=== PATIENT | female | born 1945 | race Caucasian/White ===

== ENCOUNTER 2016-05-20 05:34 | Inpatient (IN) | payer OTHER ==
[2016-04-21 10:39] VITALS: BMI 44.0
--- NOTE | 2016-04-21 11:14 | PAT Medication Instructions ---
Service Date Apr 21, 2016. Current Home Medication List Acetaminophen (Tylenol), 1,300 MG PO PRN Aspirin (Aspirin Ec), 81 MG PO QAM Atorvastatin (Lipitor), 10 MG PO QAM Bupropion (Wellbutrin-Xl), 300 MG PO QAM Calcium Carbonate-Vitamin D (Calcium + D), 1 TAB PO QAM Fish Oil (Embarrass-3), 1 CAP PO QAM Furosemide (Lasix), 20 MG PO QAM Losartan Potassium (Cozaar), 25 MG PO QAM Meloxicam (Mobic), 15 MG PO QAM Metformin Hcl (Glucophage), 500 MG PO QAM Multivitamin (Multivitamin), 1 TAB PO QAM Sertraline (Zoloft), 25 MG PO QAM [Ferrous Sulfate], 20 MG PO QAM Medication Instructions For Your Scheduled Surgery - Hold the following medications 10 days prior to surgery: Fish Oil (Embarrass-3), 1 CAP PO QAM Meloxicam (Mobic), 15 MG PO QAM (per surgeon instructions) - Hold the following medications 48 hours prior to surgery: Metformin Hcl (Glucophage), 500 MG PO QAM - Hold the following medications the morning of surgery: Ferrous Sulfate 20 MG PO QAM Multivitamin (Multivitamin), 1 TAB PO QAM Furosemide (Lasix), 20 MG PO QAM Losartan Potassium (Cozaar), 25 MG PO QAM Calcium Carbonate-Vitamin D (Calcium + D), 1 TAB PO QAM - Take the following medications the morning of surgery with a sip of water: Sertraline (Zoloft), 25 MG PO QAM Acetaminophen (Tylenol), 1,300 MG PO PRN Aspirin (Aspirin Ec), 81 MG PO QAM Atorvastatin (Lipitor), 10 MG PO QAM Bupropion (Wellbutrin-Xl), 300 MG PO QAM - Take the following medications as scheduled the night before surgery: Acetaminophen (Tylenol), 1,300 MG PO PRN If you have any questions please call us at [phone] or [phone] ( [place]) or [phone]
[2016-04-21 11:37] LABS: BASO % 0.5 %; BASO ABS # 0.04 K/uL (0-0.2); COMPLETE YES; HEMATOCRIT 37.6 % (37-47); IG% 0.3 %; LYMPH % 23.9 %; LYMPH ABS # 1.78 K/uL (1.2-3.4); MEAN CELL VOLUME 93.8 fL (80-100); MEAN CORPUSCULAR HEMOGLOBIN 30.9 pg (25-34); MEAN PLATELET VOLUME 9.7 fL (7.4-10.4); MONO % 9.2 %; NEUT % 64.1 %; PLATELET COUNT 327 K/uL (130-400); RED BLOOD COUNT 4.01 M/uL (4.2-5.4); WHITE BLOOD COUNT 7.46 K/uL (4.8-10.8)
[2016-04-21 11:59] LABS: BUN/CREATININE RATIO 16.9 (10-20); CALCIUM 9.8 mg/dl (8.5-10.1); CREATININE 1.1 mg/dl (0.60-1.20); POTASSIUM 4.2 mmol/L (3.5-5.1)
[2016-04-21 12:03] LABS: PROTHROMBIN TIME (PATIENT) 10.4 SECONDS (9.0-12.0)
--- NOTE | 2016-04-21 12:10 | DIAGNOSTIC IMAGING REPORT ---
CHEST PREADMISSION(PA/LAT) CLINICAL HISTORY: PAT preoperative evaluation COMPARISON STUDY: No previous studies for comparison. FINDINGS: The bones soft tissues and hemidiaphragms are normal. The cardiomediastinal silhouette is normal. The lungs are clear. The pulmonary vasculature is normal. IMPRESSION: Negative chest. Electronically signed by: Leland Lee M.D. 04/21/2016 12:09 PM Dictated Date/Time: 04/21/2016 12:08 PM
[2016-04-21 12:54] LABS: ESTIMATED AVERAGE GLUCOSE 117 mg/dl; HA1C FLAG Normal (Normal)
--- NOTE | 2016-05-17 10:46 | HISTORY & PHYSICAL EXAMINATION ---
DATE OF ADMISSION: 05/20/2016 CHIEF COMPLAINT: Bilateral knee pain, right side greater than left. HISTORY OF PRESENT ILLNESS: A 70-year-old female who presents for treatment of both knees. She has got a long history of bilateral knee pain and discomfort, dating over 3 years back. She has been through extensive conservative treatment including steroid shots and viscosupplementation without much relief. She has difficulty walking any significant degree. She has really tried to lose weight but just can't do it. Pain is incapacitating. She would like to have her right knee replaced. Of note, patient did have a right hip replaced by Dr. Womack in [place] several years ago. PAST MEDICAL HISTORY: 1. Well controlled diabetes x10 years with a hemoglobin A1c of 5.7. 2. Hypertension. 3. Sleep apnea. 4. Obesity with a BMI of 44. 5. Gastroesophageal reflux disease. PAST SURGICAL HISTORY: Right total hip replacement in 2012. ALLERGIES: NEOSPORIN. CURRENT MEDICINES: Include: 1. Meloxicam. 2. Metformin 500 mg once a day. 3. Lasix 20 mg 2 on Thursday and Thursday, 1 on other days. 4. Iron sulfate. 5. Zoloft 25 mg. 6. Aspirin 81 mg a day. 7. Wellbutrin 300 mg daily. 8. Calcium 600+ D. 9. Fish oil 1000 mg a day. 10. Multivitamin once a day. 11. Tylenol Arthritis. SOCIAL HISTORY: A 70-year-old female who lives at [place]. Lives by herself. She is retired. FAMILY HISTORY: Noncontributory. REVIEW OF SYSTEMS: Significant for diabetes well controlled. Denies any chest pain, no shortness of breath. No history of DVT or PE. PHYSICAL EXAMINATION: GENERAL: Reveals a pleasant elderly female who looks a little bit younger than her stated age. HEAD, EYES, EARS, NOSE, AND THROAT EXAMINATION: Benign. NECK: Supple. No lymphadenopathy. LUNGS: Clear to auscultation. HEART: Has a regular rate and rhythm. ABDOMEN: Soft, nontender, nondistended. EXTREMITY EXAMINATION: Grossly neurovascularly intact except as follows: Examination of both knees reveals the patient walks with a bit of a waddling gait. She has a fairly large soft tissue envelop on both sides. Range of motion is pretty symmetrical in her knees with 5 degree flexion contracture, about 110 degrees of flexion bilaterally. No pain with hip motion. X-RAYS: X-rays of both knees reveal advanced bilateral knee DJD. She has complete loss of medial joint space. She has subchondral sclerosis. Multiple loose bodies in the back of her knee. She has got significant patellofemoral arthritis. ASSESSMENT: A 70-year-old female with a BMI of 44 with advanced bilateral knee degenerative joint disease. The right side is a bit more severe than the left. She has failed conservative treatment. She has tried to lose weight but unsuccessful. PLAN: We talked about treatment and she would like to have her right knee replaced. We will take her to the operating room and do a right total knee replacement. The risks and benefits of this procedure were explained to the patient including but not limited to DVT, PE, , infection, neurological injury, vascular injury, bleeding problem, pain, limited range of motion, stiffness, failure to relieve her symptoms, incomplete relief of symptoms, need for further surgery in the future, fracture, leg length inequality, nerve palsy, persistent pain, etc. The patient understands and desires to proceed. Informed consent was obtained. We did tell her with her BMI she is at increased risk of infection and complications and she is fully aware of that. Will likely use a tibial stem due to her large size to decrease the likelihood of loosening and may put some vancomycin in her cement. I will see her back 2 weeks postop. As far as discharge plans, she is hoping to go to [facility] or a intermediate facility as she lives by herself and she will need some assistance. AMRIK
[~2016-05-20] VITALS: Ht 165.1 cm; Wt 120.1 kg
[2016-05-20] VITALS (9 sets, daily range): BP systolic 113–153; BP diastolic 68–90; PULSE 62–79; TEMP 36.3–36.8; O2SAT 94–100; Ht 165.1 cm; Wt 120.1 kg
[~2016-05-20 05:34] MED LIST: ACET650S10 PO; ASPI81TA28 PO; ATOR10TA82 PO; BUPRTAB51 PO; CALC600T9 PO; FERROUS SULFATE PO; FURO-85 PO; GLC/500 PO; LOSA1TAB PO; MELO7.5T5 PO; MULT-506 PO; OMEG10007 PO; SERT25TA PO
[2016-05-20] MEDS ORDERED: CEFAZOLIN 3000 MG/65 ML D5W 65 ML IV SCH (06:00)
[2016-05-20] MEDS ORDERED: GABAPENTIN 300 MG CAP PO SCH (06:00)
[2016-05-20] MEDS ORDERED: METOCLOPRAMIDE HCL 10 MG TAB PO SCH (06:00)
[2016-05-20] MEDS ORDERED: SCOPOLAMINE 1.5 MG TDSY TD SCH (06:00)
[2016-05-20] MEDS ORDERED: ACETAMINOPHEN 500 MG TAB PO SCH (06:00)
[2016-05-20] MEDS ORDERED: BUPIVACAINE LIPOSOME 266 MG, BUPIVACAINE/EPINEPHRINE INJ 50 ML, SODIUM CHLORIDE 0.9% PF... INFIL SCH ×3 (06:00)
[2016-05-20] MEDS ORDERED: LACTATED RINGER'S 1000ML 1,000 ML IV SCH (06:00)
[2016-05-20] MEDS ORDERED: LACTATED RINGER'S 1000ML IV SCH (06:00)
[2016-05-20] MEDS ORDERED: TRANEXAMIC ACID INJ 1,000 MG in SODIUM CHLORIDE 0.9% 100ML 100 ML IV SCH ×2 (06:00→15:00)
[2016-05-20] MEDS ORDERED: FAMOTIDINE 20 MG TAB PO SCH (06:00)
[2016-05-20] MEDS ORDERED: BUPIVACAINE 0.5 % 5 MG/1 ML PF 10ML VIAL ONE (06:25)
[2016-05-20] MEDS ORDERED: BUPIVACAINE 0.25% 30 ML VIAL ONE (06:25)
[2016-05-20] MEDS ORDERED: BUPIVACAINE LIPOSOME 1/3% 266 MG/20 ML VIAL INFIL ONE (06:39)
[2016-05-20] MEDS ORDERED: SODIUM CHLORIDE 0.9% PF 50 ML VIAL ONE (06:39)
[2016-05-20] MEDS ORDERED: BACITRACIN 50000 UNIT VIAL ONE (06:39)
[2016-05-20] MEDS ORDERED: BUPIVACAINE/EPINEPHRINE 0.25% 1:200,000 30 ML VIAL ONE (06:39)
--- NOTE | 2016-05-20 06:45 | History & Physical Bridge Note ---
H&P Re-Evaluation Bridge Note: I have examined the patient, reviewed the History & Physical and in the interval since the performance of the History & Physical I have noted the following changes of clinical significance: No changes noted
[2016-05-20] MEDS ORDERED: VANCOMYCIN HCL 1000MG/20ML VIAL ONE (06:52)
[2016-05-20] MEDS ORDERED: MIDAZOLAM HCL 1 MG/ML 2ML VIAL ONE (07:08)
[2016-05-20] MEDS ORDERED: FENTANYL CITRATE INJ 50 MCG/1 ML 2 ML VIAL ONE (07:08)
[2016-05-20] MEDS ORDERED: LACTATED RINGER'S 1000ML 1,000 ML IV PRN (07:41)
[2016-05-20] MEDS ORDERED: FENTANYL CITRATE INJ 50 MCG/1 ML 2 ML VIAL IV PRN (07:45)
[2016-05-20] MEDS ORDERED: ONDANSETRON INJ 2 MG/ML 2 ML VIAL IV PRN ×2 (07:45→09:15)
[2016-05-20] MEDS ORDERED: EpHEDrine SULFATE 50MG/5ML SYR ONE (08:04)
[2016-05-20] MEDS ORDERED: PROPOFOL IV EMULSION 10 MG/ML 20 ML VIAL IV ONE (08:04)
--- NOTE | 2016-05-20 09:06 | [facility] Post Operative Brief Note ---
Immediate Operative Summary Operative Date May 20, 2016. Pre-Operative Diagnosis Advanced Right Knee Degenerative Joint Disease Post-Operative Diagnosis Advanced Right Knee Degenerative Joint Disease Procedure(s) Performed Right Total Knee Arthroplasty Surgeon Dr. Freeman Body Trimmer Surgeon(s) TAHIRA Dunn Estimated Blood Loss 50 ml Findings Right Knee DJD Fluids (cc crystalloids) 1300 cc Specimens A. Right Knee Bone and Tissue Drains None Anesthesia Spinal Complication(s) None Disposition Recovery Room / PACU
[2016-05-20] MEDS ORDERED: GLUCAGON FOR INJ 1 MG VIAL SQ PRN (09:15)
[2016-05-20] MEDS ORDERED: DEXTROSE 50% 50 ML SYR IV PRN (09:15)
[2016-05-20] MEDS ORDERED: ALUMINUM/MAGNESIUM/SIMETH (MAALOX MAX) 30 ML UDC PO PRN (09:15)
[2016-05-20] MEDS ORDERED: GLUCOSE 40% GEL 15 GM TUBE PO PRN (09:15)
[2016-05-20] MEDS ORDERED: SILVER SULFADIAZINE 1% CR 50 GM JAR EXT PRN (09:15)
[2016-05-20] MEDS ORDERED: ZOLPIDEM TARTRATE 5 MG TAB PO PRN (09:15)
[2016-05-20] MEDS ORDERED: DiphenhydrAMINE HCL 50 MG/ML VIAL IV PRN (09:15)
[2016-05-20] MEDS ORDERED: MAGNESIUM HYDROXIDE SUSP 30 ML UDC PO PRN (09:15)
[2016-05-20] MEDS ORDERED: BISACODYL 10 MG SUPP PR PRN (09:15)
[2016-05-20] MEDS ORDERED: GLUCOSE 10 TABS/TUBE PO PRN (09:15)
[2016-05-20] MEDS ORDERED: MoRPHine SULFATE 2 MG/ML CARP IV PRN (09:15)
[2016-05-20] MEDS ORDERED: METOCLOPRAMIDE HCL INJ 5 MG/ML 2 ML VIAL IV PRN (09:15)
--- NOTE | 2016-05-20 09:40 | Anesthesiology Progress Note ---
Anesthesia Post Op Note Date & Time May 20, 2016 at 09:38 Vital Signs Pain Intensity: 0 Vital Signs Past 12 Hours Date Time Temp Pulse Resp B/P Pulse Ox O2 Delivery O2 Flow Rate FiO2 05/20/16 09:35 37 65 16 104/56 100 Nasal Cannula 2 05/20/16 09:25 37 65 16 116/60 100 Nasal Cannula 2 05/20/16 09:15 69 16 112/55 100 Nasal Cannula 2 05/20/16 09:08 36.9 69 16 104/56 100 Nasal Cannula 3 05/20/16 06:15 36.6 79 20 153/90 94 Room Air Notes Mental Status: alert / awake / arousable, participated in evaluation Pt Amnestic to Procedure: No (recall as expected) Nausea / Vomiting: adequately controlled Pain: adequately controlled Airway Patency, RR, SpO2: stable & adequate BP & HR: stable & adequate Hydration State: stable & adequate Neuraxial Anesthesia: was administered, sensory block is resolving Anesthetic Complications: no major complications apparent Pt doing well.
--- NOTE | 2016-05-20 10:13 | DIAGNOSTIC IMAGING REPORT ---
RIGHT KNEE 1 OR 2 VIEWS ROUTINE CLINICAL HISTORY: Postoperative evaluation. COMPARISON: Knee radiographs during her 29/07/2016. FINDINGS: Alignment of the total right knee arthroplasty is anatomic. There is no fracture or unexpected radiopaque foreign body. Skin ciara are present. IMPRESSION: Expected findings following total right knee arthroplasty. Electronically signed by: Surinder Hernandez M.D. 05/20/2016 10:10 AM Dictated Date/Time: 05/20/2016 10:10 AM
[2016-05-20] MEDS ORDERED: INSULIN HUMAN REGULAR SC SCH (11:00)
[2016-05-20] MEDS: KETOROLAC TROMETHAMINE 15 MG/ML VIAL IV. SCH ×3 (11:28→23:39)
[2016-05-20] MEDS: SODIUM CHLORIDE 0.9% 1000ML 1,000 ML IV SCH ×3 (11:29→23:37)
[2016-05-20] MEDS: INSULIN HUMAN REGULAR SC SCH ×3 (12:00→21:00)
[2016-05-20] MEDS: FERROUS GLUCONATE 324 MG TAB PO SCH ×2 (12:17→19:02)
[2016-05-20] MEDS: OXYCODONE HCL IR 5 MG TAB (IMMEDIATE RELEASE) PO PRN (12:17)
[2016-05-20] MEDS: ACETAMINOPHEN 500 MG TAB PO SCH ×2 (13:50→21:48)
--- NOTE | 2016-05-20 14:45 | OPERATIVE REPORT ---
DATE OF OPERATION: 05/20/2016 SURGEON: Demetri Freeman MD ENDOSCOPY TECH: TAHIRA Kohli PREOPERATIVE DIAGNOSIS: Right knee degenerative joint disease. POSTOPERATIVE DIAGNOSIS: Same. PROCEDURE PERFORMED: Right cemented posterior stabilized total knee arthroplasty. COMPLICATIONS: None. ESTIMATED BLOOD LOSS: 50 mL. FLUID REPLACEMENT: 1200 mL crystalloid fluid replacement. TOURNIQUET TIME: 55 minutes at 350 mmHg. ANESTHESIA: Spinal with adductor canal block. DRAINS: None. SPECIMENS: Right knee sent for pathology. OPERATIVE INDICATIONS: The patient is a 70-year-old female who has had a fairly long history of bilateral knee pain and discomfort. The patient has been through extensive conservative treatment without adequate relief. She has tried to lose weight, but unsuccessfully. The x-rays reveal advanced bilateral knee DJD. The right side was more symptomatic than the left. She elected to proceed with right total knee replacement. OPERATIVE FINDINGS: Operative findings revealed advanced right knee DJD. She had grade 4 [id number] disease in all 3 compartments, most severe in the medial side. She had osteophytes on the medial femoral condyle and medial tibial plateau. Large knee joint effusion. She had a large soft tissue envelope. She is diabetic with a BMI of 44. OPERATIVE IMPLANTS: Operative implants consisted of: 1. A Biomet Vanguard size 70 right posterior stabilized femoral component. 2. A Biomet size 71 tibial tray. 3. A 12-mm posterior stabilized polyethylene insert. 4. A 34 x 8.5 all poly patella. OPERATIVE PROCEDURE: The was patient taken to the operating room, identified and placed on the operating table in supine position. All contact areas were appropriately padded. IV antibiotics were provided by anesthesia team. A spinal anesthetic and adductor canal block had been provided in the holding area. Goss catheter was placed in sterile fashion. Right thigh tourniquet was then placed and the right lower extremity was then prepped and draped in usual sterile fashion. The right leg was elevated and exsanguinated with Esmarch and tourniquet was placed at 350 mmHg. An anterior approach to the right knee was then performed through a longitudinal incision centered over the patella. Sharp dissection was carried out through the subcutaneous tissues down to the level of the extensor mechanism. A medial parapatellar arthrotomy incision was made. Some subperiosteal dissection was carried out medially. The fat pad was resected from beneath the patellar tendon. The lateral patellofemoral ligament was released. The patella was everted and knee was flexed. The osteophytes were taken off the distal femur. The ACL and PCL were then released from the distal femur and the tibia subluxated anteriorly. The external tibial alignment jig was then placed in the anterior face of the tibia and adjusted 16 mm medially. Proximal tibial cut was made to remove about a millimeter of bone from the most deficient aspect of the medial tibial plateau. Some osteophytes were taken off medial and posteromedially. Tibia size was size 71. Attention was then drawn to the femur. The distal femur was entered with a sharp drill bit. Intramedullary canal was suctioned. A right 5-degree valgus cutting guide was placed. Distal femoral cutting block was pinned in place. Distal femoral cut was made to take an additional 3 mm of bone off the distal femur. The femur was then sized to a size 70. We did downsize this slightly. The AP cutting block was pinned parallel to the epicondylar axis, which was 3 degrees of external rotation. The anterior cut, anterior chamfer, posterior cut, and posterior chamfer cuts were made. Box cutting guide was placed and adjusted slight lateral and the box cut was made. The knee was flexed. The remnants of the medial and lateral menisci were excised. The osteophytes were taken off the posterior aspect of the femur. A trial femoral component was placed. Tibial tray was pinned in maximum external rotation and drill and stem punch were used to create defect in proximal tibia for the tibial tray. The knee was then trialed and the 12-mm insert fit most appropriately. Attention was then drawn to the patella. The patella was cleaned of all soft tissues. Patella thickness measured 22 mm and was cut down to 14. It was sized to a size 34 patella. Lug holes were drilled for a 34 patella. Lateral osteophyte was removed. Patella button was placed. Knee was taken through range of motion and the patella tracked nicely with no thumbs test. Attention was then drawn toward placement of permanent components. All trial components were removed. A bone plug was placed in the distal femur to limit blood loss. The patient did receive 1 gram of tranexamic acid. The wound was irrigated. A double batch of Palacos G cement was mixed. I did add an additional gram of vancomycin due to her large size and her diabetes. A right size 70 posterior stabilized femoral component, size 71 tibial tray, a 12-mm posterior stabilized polyethylene insert, and a 34 x 8.5 all poly patella were then cemented in place. Knee was brought out into full extension until cement hardened. A final cement check was then performed. Pericapsular tissues were injected with a total of 100 mL of a combination of 20 mL of Exparel, 30 mL of normal saline, and 50 mL of 0.25% Marcaine with epinephrine. The tourniquet was then let down for a final tourniquet time of 55 minutes. Hemostasis was assured with use of electrocautery. The wound was once again irrigated. The extensor mechanism was then closed with a combination of #1 PDS suture and #1 Vicryl suture in a [id number] fashion. Extensor mechanism was checked and found to be intact. The subcutaneous tissues were then closed with 2-0 Dexon suture in a buried interrupted fashion. Skin was closed skin ciara. Leg was then cleaned and dried and a sterile dressing of Xeroform, 4 x 4, sterile cast padding and Vijay bandage were applied. The patient then transferred to the recovery room in stable condition. The patient tolerated the procedure well with no complications. All needle and sponge counts were correct at the end of the operation. I attest to the content of the Intraoperative Record and any orders documented therein. Any exceptio ns are noted below.
[2016-05-20] MEDS: CHECK SCOPOLAMINE PATCH PLACEMENT SCH ×2 (15:45→23:37)
[2016-05-20] MEDS: CEFAZOLIN IV 2,000 MG in DEXTROSE 5% 50ML 50 ML IV SCH ×2 (15:47→23:36)
--- NOTE | 2016-05-20 18:38 | PROGRESS NOTE ---
DATE: 05/20/2016 SUBJECTIVE: A 70-year-old white female postop from a right knee replacement. She is doing pretty well. Having quite a bit knee pain and leg pain currently. Just got some medicine not too long ago. Denies any chest pain or shortness of breath. Not feeling dizzy or lightheaded. OBJECTIVE: VITAL SIGNS: Temperature 36.4. Vital signs stable. PHYSICAL EXAMINATION: GENERAL: Reveals a healthy, pleasant middle-aged female. She is sitting up in bed, looks reasonably comfortable. LUNGS: Clear to auscultation. HEART: Has a regular rate and rhythm. ABDOMEN: Soft, nontender, nondistended. EXTREMITIES: Grossly neurovascularly intact except as follows: Examination of the right lower extremity reveals the leg to be well aligned. Dressing is clean, dry and intact. She can dorsiflex and plantarflex her foot appropriately. She is neurologically intact. IMAGING DATA: X-rays of the right knee from recovery room were reviewed. It shows a cemented posterior stabilized total knee arthroplasty. Components looked to be in good position. No signs of problems. ASSESSMENT: A 70-year-old white female postop from a right knee replacement, doing well. Pain is controlled. She is neurologically intact. PLAN: 1. DVT prophylaxis including thigh-high TEDs, SCDs, and aspirin twice a day. 2. PT/OT. Weightbearing as tolerated. Right total knee protocol. 3. Pain control, doing reasonably well with current pain regimen. 4. She is ready for some IV morphine as needed. 5. Disposition: She is hoping to be discharged to [facility] for a brief rehab stay once medically stable.
[2016-05-20] MEDS: TAPENTADOL ER 50 MG TABCR PO SCH (21:46)
[2016-05-20] MEDS: ASPIRIN 325 MG ECTAB PO SCH (21:47)
[2016-05-20] MEDS: DOCUSATE SODIUM 100 MG CAP PO SCH (21:47)
[2016-05-21] VITALS (7 sets, daily range): BP systolic 102–134; BP diastolic 59–82; PULSE 68–79; TEMP 36.9–37.6; O2SAT 94–98
[2016-05-21] MEDS: KETOROLAC TROMETHAMINE 15 MG/ML VIAL IV. SCH ×4 (05:49→23:34)
[2016-05-21] MEDS: ACETAMINOPHEN 500 MG TAB PO SCH ×3 (05:50→21:50)
[2016-05-21 06:08] LABS: HEMATOCRIT 31.1 % (37-47); MEAN CELL VOLUME 93.4 fL (80-100); MEAN CORPUSCULAR HEMOGLOBIN 30.6 pg (25-34); MEAN CORPUSCULAR HGB CONC 32.8 g/dl (32-36); MEAN PLATELET VOLUME 9.1 fL (7.4-10.4); PLATELET COUNT 309 K/uL (130-400); RED BLOOD COUNT 3.33 M/uL (4.2-5.4); WHITE BLOOD COUNT 8.97 K/uL (4.8-10.8)
[2016-05-21 06:25] LABS: BUN/CREATININE RATIO 16.7 (10-20); CREATININE 0.83 mg/dl (0.60-1.20); POTASSIUM 4.2 mmol/L (3.5-5.1)
[2016-05-21] MEDS: SODIUM CHLORIDE 0.9% 1000ML 1,000 ML IV SCH (06:38)
--- NOTE | 2016-05-21 07:23 | PROGRESS NOTE ---
DATE: 05/21/2016 SUBJECTIVE: A 70-year-old female postop day 1 from right knee replacement. She is doing much better this morning. Pain is controlled. Denies any chest pain or shortness of breath. Not feeling dizzy or lightheaded. OBJECTIVE: VITAL SIGNS: Temperature 36.9. Vital signs stable. PHYSICAL EXAMINATION: GENERAL: Reveals a healthy, pleasant middle-aged female. She is sitting up in bed, looks pretty comfortable. LUNGS: Clear to auscultation. HEART: Regular rate and rhythm. ABDOMEN: Soft, nontender, nondistended. EXTREMITIES: Grossly neurovascularly intact except as follows. Examination of the right lower extremity reveals the leg to be well aligned. She can dorsiflex and plantarflex her foot appropriately. She can do a good straight leg raise. Neurologically intact. LABORATORY DATA: Hemoglobin 10.2. Hematocrit 31.4. Electrolytes are stable. ASSESSMENT: A 70-year-old female postop day 1 from right total knee replacement, doing well. Pain is under better control. She is neurologically intact. PLAN: 1. DVT prophylaxis including thigh-high TEDs, SCDs, and aspirin twice a day. 2. PT/OT. Weightbearing as tolerated. Right total knee protocol. 3. Pain control. Doing well current pain regimen. 4. Disposition: She is hoping to be discharged to [facility] for a brief rehab stay once adequately recovered.
--- NOTE | 2016-05-21 08:54 | Anesthesiology Progress Note ---
Anesthesia Post Op Note Date & Time May 21, 2016 at 08:52 Vital Signs Vital Signs Past 12 Hours Date Time Temp Pulse Resp B/P Pulse Ox O2 Delivery O2 Flow Rate FiO2 05/21/16 07:52 37.0 68 16 123/76 96 Room Air 05/21/16 03:10 36.9 78 14 116/75 96 Room Air 05/20/16 23:40 Room Air 05/20/16 23:27 36.8 70 14 121/71 98 Room Air Notes Mental Status: alert / awake / arousable, participated in evaluation Pt Amnestic to Procedure: Yes Nausea / Vomiting: adequately controlled Pain: adequately controlled Airway Patency, RR, SpO2: stable & adequate BP & HR: stable & adequate Hydration State: stable & adequate Neuraxial Anesthesia: sensory block resolved Anesthetic Complications: no major complications apparent
[2016-05-21] MEDS: CHECK SCOPOLAMINE PATCH PLACEMENT SCH ×3 (08:58→23:34)
[2016-05-21] MEDS: FERROUS GLUCONATE 324 MG TAB PO SCH ×3 (08:59→18:11)
[2016-05-21] MEDS: INSULIN HUMAN REGULAR SC SCH ×4 (08:59→21:00)
[2016-05-21] MEDS: ATORVASTATIN 10 MG TAB PO SCH (09:00)
[2016-05-21] MEDS ORDERED: MULTIVITAMIN TAB PO SCH (09:00)
[2016-05-21] MEDS: ASPIRIN 325 MG ECTAB PO SCH ×2 (09:00→21:07)
[2016-05-21] MEDS: BuPROPion XL 300 MG TABCR PO SCH (09:01)
[2016-05-21] MEDS: MULTIVITAMIN TAB PO SCH (09:01)
[2016-05-21] MEDS: PANTOprazole SOD 40 MG TAB PO SCH (09:02)
[2016-05-21] MEDS: DOCUSATE SODIUM 100 MG CAP PO SCH ×2 (09:02→21:07)
[2016-05-21] MEDS: SERTRALINE HCL 50 MG TAB PO SCH (09:02)
[2016-05-21] MEDS: LOSARTAN POTASSIUM 25 MG TAB PO SCH (09:05)
[2016-05-21] MEDS: FUROSEMIDE 20 MG TAB PO SCH (09:05)
[2016-05-21] MEDS: TAPENTADOL ER 50 MG TABCR PO SCH ×2 (09:08→21:07)
[2016-05-21] MEDS: CALCIUM 600MG + VIT D 400 IU TAB PO SCH (09:27)
[2016-05-21] MEDS: OXYCODONE HCL IR 5 MG TAB (IMMEDIATE RELEASE) PO PRN (11:25)
[2016-05-21] MEDS ORDERED: RXC5 PO (20:33)
[2016-05-21] MEDS ORDERED: ASPEC325 PO (20:33)
[2016-05-21] MEDS ORDERED: FRRG PO (20:33)
[2016-05-21] MEDS ORDERED: ACET-1138 PO (20:33)
[2016-05-21] MEDS ORDERED: NCYSR50 PO (20:33)
--- NOTE | 2016-05-21 20:37 | Discharge Instructions ---
Discharge Instructions Date of Service May 21, 2016. Admission Reason for Admission: Right Knee Degenerative Joint Disease Discharge Discharge Diagnosis / Problem: Right Knee Replacement Discharge Goals Goal(s): Decrease discomfort, Improve function, Increase independence, Improve disease control, Therapeutic intervention Activity Recommendations Activity Level: Assistance Required Therapies: Physical Therapy, Occupational Therapy Weightbearing Status: Right weightbearing . Additional Information Patient informed of condition: Yes Advance Directives: No DNR: No Level of Care: Acute Rehab Communicable Disease: No Prognosis: Improving Instructions / Follow-Up Instructions / Follow-Up ACTIVITY RECOMMENDATIONS: Physical Therapy: * You will go to physical therapy three times each week for four to six weeks after your surgery in order to regain your knee range of motion and to retrain your knee to work properly. * It is just as important to make sure you are getting your knee perfectly straight as it is to regain your knee bend. * Taking a pain pill an hour before therapy can help you have a more productive and comfortable therapy session. Home Exercise: * You were shown a series of exercises (heel props, heel slides, etc.) in the hospital. Do these exercises three to four times each day including the exercises you were shown in physical therapy. Walking: * Get up and walk several times each day. For the first four weeks, try not to stand or walk for more than one hour at a time. If you do stand or walk for more than one hour, you will not hurt anything, but your knee and leg will likely swell. * As you feel comfortable, you may change from the walker or crutches to a cane and then to independent walking. MEDICATIONS: New Medicine: * You will likely be taking one or more of these medications: 1. Nucynta - A long-acting pain medication. Take 1 tablet twice a day for the first ten days to decrease your baseline level of pain. 2. Oxycodone - A quick and shorter-acting pain medication. Take one to two tablets every four to six hours to lessen your pain. 3. Iron Sulfate - Take three times each day for the month after surgery to help you replace the blood lost during surgery. 4. Aspirin - Thins your blood to lessen the chance of forming a blood clot. * The most common side effects of pain medicine and iron are nausea and constipation. If nausea or constipation is too much of a problem or if you have any questions about your new medicines or doses, call [facility] at . We will try to help you manage these issues. VERY IMPORTANT TO READ AND REVIEW" Pain: * The immediate post-operative period after knee replacement surgery is often quite painful. * You are given a prescription for pain medicine. You should take it, as directed, when you need it, especially before physical therapy and before going to bed. Pain that interferes with sleep is very common and can last several months. * You will likely need pain medicine for the first four to six weeks. It will not stop all of the pain. The pain will lessen and as you feel better, you may change to milder pain medicine such as Tylenol. * The most common side effects of pain medicine are nausea and constipation, so don't take more than you need. SPECIAL CARE INSTRUCTIONS: TEDs/Elastic Stockings: * The white elastic stockings help limit swelling and prevent blood clots from forming in your legs. The more you wear them, the more they work. * Wear them for six weeks after knee replacement surgery and four weeks after partial knee replacement. Prevention of Infection: * Take antibiotics one hour before any dental cleaning, dental work, urological procedure, gastrointestinal procedure or any invasive surgery in order to prevent your new joint from getting infected. * You may get the antibiotics from the doctor performing the procedure or you may call our office at before and we will call in a prescription to the pharmacy of your choice. Things to Watch For: * Drainage from the incision site that occurs more than one week after your surgery. * Severely increased knee/leg pain or swelling. * Increased redness at the incision site. * Fever above 102 degrees Fahrenheit. * Unusual chest pain or shortness of breath. * Unusual pain or burning with urination. Call [facility] at with any of the above problems or if you have any questions about your medicines or recovery. FOLLOW UP VISIT: Make an appointment to see your doctor for approximately two weeks after surgery for a progress check and staple removal by calling the office at . Current Hospital Diet Patient's current hospital diet: Diabetes Type 2 Diet Discharge Diet Recommended Diet: Diabetes Type 2 Diet Procedures Procedures Performed: Right Total Knee Arthroplasty Pending Studies Studies pending at discharge: no Laboratory Results Hemoglobin A1c Test 04/21/16 11:19 Range/Units Estimated Average Glucose 117 mg/dl Hemoglobin A1c 5.7 H 4.5-5.6 % Medical Emergencies . Who to Call and When: Medical Emergencies: If at any time you feel your situation is an emergency, please call 911 immediately. . Non-Emergent Contact Non-Emergency issues call your: Surgeon . . "Provider Documentation" section prepared by Demetri Freeman. Core Measure Problem Core Measures: None
[2016-05-22] MEDS: KETOROLAC TROMETHAMINE 15 MG/ML VIAL IV. SCH (05:51)
[2016-05-22] MEDS: ACETAMINOPHEN 500 MG TAB PO SCH (05:51)
--- NOTE | 2016-05-22 07:33 | ORTHOPEDIC PROGRESS NOTE ---
DATE: 05/22/2016 SUBJECTIVE: Palmira is a 70-year-old female. She is now postoperative day #2 from right total knee replacement. She is doing well today. Pain is controlled. No chest pain, shortness breath. No other complaints. OBJECTIVE: GENERAL: She is alert, oriented in no distress. Vital signs have been stable. Dressing is clean, dry and intact. She is actually able to do a straight leg raise today. She is able to dorsiflex and plantarflex appropriately. She is neurovascularly intact. IMPRESSION: Postoperative day #2 from right total knee arthroplasty. PLAN: Will continue CARY stockings, SCDs and aspirin for DVT prophylaxis, PT, OT. She is weightbearing as tolerated. Total knee protocol. Continue discharge planning with plan to discharge to a rehab at [facility] possibly today. She was seen and examined by Dr. Freeman today as well.
[2016-05-22 08:05] VITALS: BP 123/74; PULSE 67; TEMP 36.5; O2SAT 97
[2016-05-22] MEDS: LOSARTAN POTASSIUM 25 MG TAB PO SCH (09:00)
[2016-05-22] MEDS: INSULIN HUMAN REGULAR SC SCH (09:16)
[2016-05-22 09:17] VITALS: BP 103/67; PULSE 76
[2016-05-22] MEDS: FERROUS GLUCONATE 324 MG TAB PO SCH (09:18)
[2016-05-22] MEDS: ATORVASTATIN 10 MG TAB PO SCH (09:19)
[2016-05-22] MEDS: ASPIRIN 325 MG ECTAB PO SCH (09:19)
[2016-05-22] MEDS: PANTOprazole SOD 40 MG TAB PO SCH (09:19)
[2016-05-22] MEDS: MULTIVITAMIN TAB PO SCH (09:19)
[2016-05-22] MEDS: DOCUSATE SODIUM 100 MG CAP PO SCH (09:19)
[2016-05-22] MEDS: FUROSEMIDE 20 MG TAB PO SCH (09:20)
[2016-05-22] MEDS: BuPROPion XL 300 MG TABCR PO SCH (09:20)
[2016-05-22] MEDS: SERTRALINE HCL 50 MG TAB PO SCH (09:21)
[2016-05-22] MEDS: TAPENTADOL ER 50 MG TABCR PO SCH (09:23)
[2016-05-22] MEDS: CALCIUM 600MG + VIT D 400 IU TAB PO SCH (10:03)
[2016-05-22 10:38] VITALS: BP 103/67; PULSE 76; TEMP 36.5; O2SAT 97
[2016-05-22] MEDS: OXYCODONE HCL IR 5 MG TAB (IMMEDIATE RELEASE) PO PRN (11:52)
--- NOTE | 2016-05-28 14:34 | DISCHARGE SUMMARY ---
ADMITTING PHYSICIAN AND SURGEON: Dr. Freeman. ADMITTING DIAGNOSIS: Right knee degenerative joint disease. SURGERY PERFORMED: Right total knee arthroplasty. SECONDARY DIAGNOSES: Diabetes, hypertension, sleep apnea, obesity, gastroesophageal reflux disease. CONSULTS: None obtained. HISTORY AND PHYSICAL EXAMINATION: Well documented in the patient's chart. HOSPITAL COURSE: The patient was admitted on 05/20/2016 underwent total knee arthroplasty, tolerated the procedure well. There were no complications. She was transferred to the PACU postoperatively and later to the orthopedic floor for further care. She was given Ancef for antibiotic prophylaxis, CARY stockings, SCDs and aspirin for DVT prophylaxis. Hemoglobin, hematocrit and vital signs were monitored during her hospital stay and remained stable. She developed some postoperative anemia with a hemoglobin of 10.2, but did not require any blood transfusions. There were no complications. By postoperative day 2, she was tolerating a diabetic diet. Pain was controlled with oral pain medicine. She was participating in physical therapy and had no signs or symptoms of deep vein thrombosis. On postop day 2, she was discharged to a rehab facility. She was given printed discharge instructions including prescriptions for extra strength Tylenol, aspirin 325 mg b.i.d., iron supplement, oxycodone and Nucynta. Continue her home medicines with the exception of her home doses of Tylenol and aspirin which were changed. Continue physical therapy, weightbearing as tolerated. CARY stockings. She will follow up in 10-12 days or sooner if there are any problems or concerns.
[2016-09-15] MEDS ORDERED: ASPI81TA28 PO (10:06)
[2016-09-15] MEDS ORDERED: ACET1TAB84 PO (10:06)
[2016-09-15] MEDS ORDERED: FERR325T18 PO (10:06)
== END 2016-05-22 12:45 | DRG 470 ==
LOC: ENRESERVTM → ENRESERVDT → C.ACU 05:34 → C.3E 06:40
PROVIDERS: ADMIT Orthopaedic Surgery Sports Medicine; ATTEND Orthopaedic Surgery Sports Medicine
PROC: 0SRC0J9 Replacement of Right Knee Joint with Synthetic Substitute, Cemented, Open Approach (ICD-10-PCS; principal; 2016-05-20 07:30)
DX: M17.0 Bilateral primary osteoarthritis of knee (principal); Z68.41 Body mass index [BMI] 40.0-44.9, adult; E66.01 Morbid (severe) obesity due to excess calories; K21.9 Gastro-esophageal reflux disease without esophagitis; G47.33 Obstructive sleep apnea (adult) (pediatric); E11.9 Type 2 diabetes mellitus without complications; I10 Essential (primary) hypertension; F41.9 Anxiety disorder, unspecified; F32.9 Major depressive disorder, single episode, unspecified; D64.9 Anemia, unspecified; M25.40 Effusion, unspecified joint; Z96.641 Presence of right artificial hip joint; Z87.891 Personal history of nicotine dependence; Z99.89 Dependence on other enabling machines and devices; Z79.899 Other long term (current) drug therapy; Z79.82 Long term (current) use of aspirin; Z79.84 Long term (current) use of oral hypoglycemic drugs; Z79.1 Long term (current) use of non-steroidal anti-inflammatories (NSAID)

== ENCOUNTER → 2016-08-06 | Outpatient (CLI) | payer OTHER ==
[~2016-08-06] VITALS: Ht 165.1 cm; Wt 124.4 kg
[~2016-08-06] MED LIST changes: +ACET-1138 PO; +ACET-24 PO; +ACET1TAB84 PO; -ACET650S10 PO; +ASPEC325 PO; -ATOR10TA82 PO; +ATOR10TA88 PO; +FERR325T18 PO; +FRRG PO; +NCYSR50 PO; +RXC5 PO
[2016-08-06 08:52] VITALS: BP 142/85; PULSE 79; Ht 165.1 cm; Wt 124.4 kg
== END | disposition home or self-care (01) ==
LOC: C.NEUR 08:31
PROVIDERS: ATTEND Internal Medicine Pulmonary Disease
DX: G47.33 Obstructive sleep apnea (adult) (pediatric) (principal); Z87.891 Personal history of nicotine dependence; E11.9 Type 2 diabetes mellitus without complications; I10 Essential (primary) hypertension; Z79.899 Other long term (current) drug therapy

== ENCOUNTER → 2016-10-20 | Outpatient (CLI) | payer OTHER ==
[~2016-10-20] MED LIST changes: -ACET-1138 PO; -FERROUS SULFATE PO; -FRRG PO
[2016-10-20 16:55] LABS: BASO % 0.5 %; BASO ABS # 0.04 K/uL (0-0.2); COMPLETE YES; EOS % 2.6 %; HEMATOCRIT 39.8 % (37-47); IG% 0.4 %; LYMPH % 25.5 %; LYMPH ABS # 2.15 K/uL (1.2-3.4); MEAN CELL VOLUME 94.1 fL (80-100); MEAN CORPUSCULAR HEMOGLOBIN 31.7 pg (25-34); MEAN CORPUSCULAR HGB CONC 33.7 g/dl (32-36); PLATELET COUNT 411 K/uL (130-400); RED BLOOD COUNT 4.23 M/uL (4.2-5.4); WHITE BLOOD COUNT 8.44 K/uL (4.8-10.8)
[2016-10-20 17:05] LABS: INR 0.9 (0.9-1.1); PROTHROMBIN TIME (PATIENT) 10.1 SECONDS (9.0-12.0)
[2016-10-20 17:13] LABS: BLOOD UREA NITROGEN 20 mg/dl (7-18); BUN/CREATININE RATIO 17.9 (10-20); CALCIUM 10.6 mg/dl (8.5-10.1); CARBON DIOXIDE 31 mmol/L (21-32); CHLORIDE 101 mmol/L (98-107); GLUCOSE 91 mg/dl (70-99); POTASSIUM 4.5 mmol/L (3.5-5.1); SODIUM 137 mmol/L (136-145)
[2016-10-20 17:14] LABS: C-REACTIVE PROTEIN 0.89 mg/dl (0-0.29)
== END | disposition home or self-care (01) ==
LOC: C.LABBC 14:26
PROVIDERS: ATTEND Orthopaedic Surgery Sports Medicine
DX: Z01.812 Encounter for preprocedural laboratory examination (principal)

== ENCOUNTER 2016-11-04 05:03 | Inpatient (IN) | payer OTHER ==
[2016-09-15 10:12] VITALS: BMI 44.0
--- NOTE | 2016-10-31 08:18 | HISTORY & PHYSICAL EXAMINATION ---
DATE OF ADMISSION: 11/04/2016 CHIEF COMPLAINT: Left knee pain and discomfort. HISTORY OF PRESENT ILLNESS: The patient is a 70-year-old female, who is now 5 months out from a right knee replacement. She has had a long history of bilateral knee pain and discomfort. She had her right knee replaced about 5 months ago and has done well from this. She continued to have persistent pain and discomfort in her left knee. She has a long history of left knee pain, treated with steroid shots and viscosupplementation, which has not helped much. The more she walks, the more she hurts. She is limited by her left knee and would like to have it replaced. PAST MEDICAL HISTORY: Past medical history is significant for, 1. Diabetes x10 years. 2. Hypertension. 3. Sleep apnea with CPAP machine. 4. Obesity with a BMI of 44. 5. Gastroesophageal reflux disease. PAST SURGICAL HISTORY: Include: 1. Right total hip replacement done in 2012. 2. Right total knee replacement done on 05/20/2016. ALLERGIES: NEOSPORIN. CURRENT MEDICINES: Include, 1. Meloxicam. 2. Metformin 500 mg twice a day. 3. Lasix 40 mg on Thursday and Thursday and 20 mg all other days. 4. Iron sulfate once a day. 5. Zoloft 25 mg. 6. Aspirin 81 mg. 7. Wellbutrin 300 mg. 8. Calcium 600 plus D. 9. Fish oil 1000 mg. 10. Multivitamin. 11. Tylenol Arthritis. SOCIAL HISTORY: A 70-year-old female. She lives in [place]. She lives by herself. She is retired. FAMILY HISTORY: Noncontributory. REVIEW OF SYSTEMS: Significant for diabetes. Denies any chest pain. No shortness of breath. No history of DVT or PE. No known bleeding problems. PHYSICAL EXAMINATION: GENERAL: Physical examination reveals a pleasant elderly female. She looks younger than her stated age. HEENT: Benign. NECK: Supple. No lymphadenopathy. LUNGS: Clear to auscultation. HEART: Regular rate and rhythm. ABDOMEN: Soft, nontender, and nondistended. EXTREMITIES: Grossly neurovascularly intact except as follows: Examination of the right knee reveals a well-healed incision. The knee looks anatomically aligned. Range of motion is 0-125. No instability. Examination of the left knee reveals a moderate soft tissue envelope. She has got a slight varus alignment to her knee. She is tender over the medial joint line. Range of motion is 5-120. No instability. X-rays of her left knee show advanced left knee DJD. She has complete loss of the medial joint space. She has subchondral sclerosis. She has loose bodies in the posterior aspect of the knee. She has osteophytes off the lateral femoral condyle and posterolateral tibial plateau. She does have significant patellofemoral arthritis. ASSESSMENT: A 70-year-old female, 5 months out from right knee replacement with advanced left knee degenerative joint disease. She is now more limited by her left knee and would like to have her left knee replaced. PLAN: We are going to take her to operating room and do a left total knee replacement. The risks and benefits of this procedure were explained to the patient including, but not limited to DVT, PE, , infection, neurological injury, vascular injury, bleeding problem, pain, limited range of motion, stiffness, failure to relieve her symptoms, incomplete relief of symptoms, need for further surgery in the future, etc. The patient understands and desires to proceed. Informed consent was obtained. As far as discharge plans, she is hoping to go home with home health using [facility]. She knows to stop the meloxicam 10 days preoperative. We will hold the metformin 2 days preop.
[2016-11-04] VITALS (8 sets, daily range): BP systolic 96–149; BP diastolic 57–80; PULSE 61–81; TEMP 36.4–36.7; O2SAT 95–100; Ht 165.1 cm; Wt 120.1 kg
[~2016-11-04] VITALS: Ht 165.1 cm; Wt 120.1 kg
[~2016-11-04 05:03] MED LIST changes: -ACET-24 PO; -ASPEC325 PO; -NCYSR50 PO; -RXC5 PO
[2016-11-04] MEDS ORDERED: FAMOTIDINE 20 MG TAB PO SCH (06:00)
[2016-11-04] MEDS ORDERED: LACTATED RINGER'S 1000ML 500 ML IV ONE (06:00)
[2016-11-04] MEDS ORDERED: LACTATED RINGER'S 1000ML IV SCH (06:00)
[2016-11-04] MEDS ORDERED: LACTATED RINGER'S 1000ML 1,000 ML IV SCH (06:00)
[2016-11-04] MEDS ORDERED: BUPIVACAINE LIPOSOME 266 MG, BUPIVACAINE/EPINEPHRINE INJ 50 ML, SODIUM CHLORIDE 0.9% PF... INFIL SCH ×3 (06:00)
[2016-11-04] MEDS ORDERED: SCOPOLAMINE 1.5 MG TDSY TD SCH (06:00)
[2016-11-04] MEDS ORDERED: GABAPENTIN 300 MG CAP PO SCH (06:00)
[2016-11-04] MEDS ORDERED: METOCLOPRAMIDE HCL 10 MG TAB PO SCH (06:00)
[2016-11-04] MEDS ORDERED: CEFAZOLIN 3000 MG/65 ML D5W 65 ML IV SCH (06:00)
[2016-11-04] MEDS ORDERED: ACETAMINOPHEN 500 MG TAB PO SCH (06:00)
[2016-11-04] MEDS ORDERED: FENTANYL CITRATE INJ 50 MCG/1 ML 2 ML VIAL ONE (06:18)
[2016-11-04] MEDS ORDERED: PROPOFOL IV EMULSION 10 MG/ML 20 ML VIAL IV ONE (06:18)
[2016-11-04] MEDS ORDERED: ONDANSETRON INJ 2 MG/ML 2 ML VIAL ONE (06:18)
[2016-11-04] MEDS ORDERED: MIDAZOLAM HCL 1 MG/ML 2ML VIAL ONE (06:18)
[2016-11-04] MEDS ORDERED: LIDOCAINE HCL 2% 2 ML VIAL (20MG/ML) ONE (06:18)
[2016-11-04] MEDS ORDERED: BUPIVACAINE 0.5 % 5 MG/1 ML PF 10ML VIAL ONE (06:23)
[2016-11-04] MEDS ORDERED: BUPIVACAINE 0.25% 30 ML VIAL ONE (06:24)
[2016-11-04] MEDS ORDERED: TRANEXAMIC ACID INJ 1,000 MG in SODIUM CHLORIDE 0.9% 100ML 100 ML IV SCH ×2 (06:30→15:00)
[2016-11-04] MEDS ORDERED: BUPIVACAINE LIPOSOME 1/3% 266 MG/20 ML VIAL INFIL ONE (06:36)
[2016-11-04] MEDS ORDERED: SODIUM CHLORIDE 0.9% PF 50 ML VIAL ONE (06:36)
[2016-11-04] MEDS ORDERED: BUPIVACAINE/EPINEPHRINE 0.25% 1:200,000 30 ML VIAL ONE (06:36)
[2016-11-04] MEDS ORDERED: BACITRACIN 50000 UNIT VIAL ONE (07:08)
[2016-11-04] MEDS ORDERED: FENTANYL CITRATE INJ 50 MCG/1 ML 2 ML VIAL IV PRN (07:45)
[2016-11-04] MEDS ORDERED: EpHEDrine SULFATE INJ 50 MG/ML AMP IV PRN (07:45)
[2016-11-04] MEDS ORDERED: ATROPINE SULFATE 0.1 MG/ML 5ML SYR IV PRN (07:45)
[2016-11-04] MEDS ORDERED: ONDANSETRON INJ 2 MG/ML 2 ML VIAL IV PRN ×2 (07:45→09:00)
--- NOTE | 2016-11-04 08:53 | [facility] Post Operative Brief Note ---
Immediate Operative Summary Operative Date Nov 04, 2016. Pre-Operative Diagnosis Left Knee Advanced Degenerative Joint Disease Post-Operative Diagnosis Left Knee Advanced Degenerative Joint Disease Procedure(s) Performed Left Total Knee Arthroplasty Surgeon Dr. Freeman Posting Clerk Surgeon(s) TAHIRA Dunn Estimated Blood Loss 50 ml Findings Left Knee DJD Fluids (cc crystalloids) 1100 cc Specimens A. Left Knee Bone and Tissue Drains None Anesthesia Spinal Complication(s) None Disposition Recovery Room / PACU
[2016-11-04] MEDS ORDERED: ZOLPIDEM TARTRATE 5 MG TAB PO PRN (09:00)
[2016-11-04] MEDS ORDERED: SILVER SULFADIAZINE 1% CR 50 GM JAR EXT PRN (09:00)
[2016-11-04] MEDS ORDERED: ALUMINUM/MAGNESIUM/SIMETH (MAALOX MAX) 30 ML UDC PO PRN (09:00)
[2016-11-04] MEDS ORDERED: MAGNESIUM HYDROXIDE SUSP 30 ML UDC PO PRN (09:00)
[2016-11-04] MEDS ORDERED: METOCLOPRAMIDE HCL INJ 5 MG/ML 2 ML VIAL IV PRN (09:00)
[2016-11-04] MEDS ORDERED: HYDROmorphone INJ 0.5 MG/0.5 ML SYR IV PRN (09:00)
[2016-11-04] MEDS ORDERED: BISACODYL 10 MG SUPP PR PRN (09:00)
[2016-11-04] MEDS ORDERED: MULTIVITAMIN TAB PO SCH (09:00)
--- NOTE | 2016-11-04 09:25 | OPERATIVE REPORT ---
DATE OF OPERATION: 11/04/2016 SURGEON: Demetri Freeman MD [employer]: TAHIRA Kohli PREOPERATIVE DIAGNOSIS: Left knee degenerative joint disease. POSTOPERATIVE DIAGNOSIS: Same. PROCEDURE PERFORMED: Left cemented posterior stabilized total knee arthroplasty. COMPLICATIONS: None. ESTIMATED BLOOD LOSS: 50 mL. FLUID REPLACEMENT: 1100 mL crystalloid fluid replacement. ANESTHESIA: Spinal with adductor canal block. DRAINS: None. SPECIMENS: Left knee sent for pathology. OPERATIVE INDICATIONS: The patient is a 71-year-old female who has had a long history of bilateral knee pain and discomfort. She has just become more disabling over time. She has failed all conservative care. She underwent a right knee replacement 5 months ago and has done well from this. She elected to proceed with left total knee arthroplasty. OPERATIVE FINDINGS: Operative findings revealed extensive grade 4 changes in all 3 compartments. She had extensive eburnation of the medial side of her knee. She had osteophytes in all 3 compartments. Large knee joint effusion. Very large soft tissue envelope with a BMI of 44. OPERATIVE IMPLANTS: Operative implants consisted of, 1. A Biomet Vanguard size 67.5 left posterior stabilized femoral component. 2. Biomet size 71 tibial tray. 3. A 10-mm posterior stabilized polyethylene insert. 4. A 31 x 8 all poly patella. OPERATIVE PROCEDURE: The patient was taken to the operating room, identified and placed on the operating table in the supine position. All contact areas were appropriately padded. IV antibiotics were provided by the anesthesia team. A spinal anesthetic and adductor canal block had been provided in the holding area. Goss catheter was placed in sterile fashion. A left thigh tourniquet was then placed and left lower extremity was then prepped and draped in the usual sterile fashion. Left leg was elevated and exsanguinated with Esmarch and tourniquet was placed at 350 mmHg. An anterior approach of the left knee was then performed through a longitudinal incision centered over the patella. Sharp dissection was carried out through the subcutaneous tissue down to the level of the extensor mechanism. A medial parapatellar arthrotomy incision was made. Some subperiosteal dissection was carried out medially. The fat pad was resected from beneath the patellar tendon. The lateral patellofemoral ligament was released. The patella was subluxated and the knee was flexed. The osteophytes were taken off the distal femur. The ACL and PCL were then released from the distal femur and the tibia subluxated anteriorly. The external tibial alignment jig was then placed in the anterior face of the tibia and adjusted 16 mm medially. Proximal tibial cut was made and essentially flushed with the very most deficient aspect of the posteromedial tibial plateau. This did take a fairly large piece off laterally. Some osteophytes were taken off medial and posteromedially. Tibia sized to a size 71. Attention was then drawn to the femur. The distal femur was entered with a sharp drill. Intramedullary canal was suctioned. A left 5-degree valgus cutting guide was placed. Distal femoral cutting block was pinned in place. Distal femoral cut was made to take an additional 3 mm of bone off the distal femur. The femur was then sized to a size 67.5. We did downsize this slightly. The AP cutting block was pinned parallel to the epicondylar axis, which was 5 degrees of external rotation. The anterior cut, anterior chamfer, posterior cut, and posterior chamfer cuts were made. Box cutting guide was placed and adjusted slightly lateral and the box cut was made. The remnants of the medial and lateral meniscus were excised. The osteophytes were taken off the posterior aspect of the femur. Trial femoral component was placed. Tibial tray was pinned in maximum external rotation and drill and stem punch were used to create defect in proximal tibia for the tibial tray. The knee was then trialed and a 10-mm insert fit most appropriately. Attention was then drawn to the patella. The patella was cleaned of all soft tissues. Patella thickness measured 22 mm and was cut down to 14. It was sized to a size 31 patella. Lug holes were drilled for the 31 patella. Lateral osteophyte was removed. Patella button was placed. Knee was taken through range of motion and patella tracked nicely with no thumbs test. Attention was then drawn toward placement of the permanent components. All trial components were removed. A bone plug was placed in the distal femur to limit blood loss. A double batch of Palacos G cement was mixed. A left size 67.5 posterior stabilized femoral component, size 71 tibial tray, a 10-mm posterior stabilized polyethylene insert, and a 31 x 8 all poly patella were then cemented in place. Knee was brought out into full extension until cement hardened. A final cement check was then performed. The pericapsular tissues were injected with 100 mL of a combination of 20 mL of Exparel, 30 mL of normal saline, and 50 mL of 0.25% Marcaine with epinephrine. The patient did receive 1 gram of tranexamic acid. The tourniquet was then let down for final tourniquet time of 63 minutes. Hemostasis was assured with the use of electrocautery. The extensor mechanism was then closed with a combination of #1 PDS suture and #1 Vicryl suture in a [id number] fashion. Extensor mechanism was checked and found to be intact. Subcutaneous tissues were then closed with 2-0 Dexon suture in a buried interrupted fashion. Skin was closed skin ciara. Leg was then cleaned and dried and a sterile dressing of Xeroform, 4 x 4, sterile cast padding and Vijay bandage were applied. The patient was then transferred to the recovery room in stable condition. The patient tolerated the procedure well with no complications. All needle and sponge counts were correct at the end of the operation. I attest to the content of the Intraoperative Record and any orders documented therein. Any exception s are noted below.
--- NOTE | 2016-11-04 09:29 | Anesthesiology Progress Note ---
Anesthesia Post Op Note Date & Time Nov 04, 2016 at 09:29 Vital Signs Pain Intensity: 0 Vital Signs Past 12 Hours Date Time Temp Pulse Resp B/P (MAP) Pulse Ox O2 Delivery O2 Flow Rate FiO2 11/04/16 09:25 37.3 18 100/55 99 Nasal Cannula 2 11/04/16 09:15 61 18 97/51 99 Oxymask 10 11/04/16 09:05 62 18 95/52 100 Oxymask 10 11/04/16 08:58 36.8 60 16 94/54 95 Oxymask 10 11/04/16 05:42 36.7 81 20 139/70 95 Room Air Notes Mental Status: alert / awake / arousable, participated in evaluation Pt Amnestic to Procedure: Yes Nausea / Vomiting: adequately controlled Pain: adequately controlled Airway Patency, RR, SpO2: stable & adequate BP & HR: stable & adequate Hydration State: stable & adequate Neuraxial Anesthesia: was administered, sensory block is resolving Anesthetic Complications: no major complications apparent
--- NOTE | 2016-11-04 09:41 | DIAGNOSTIC IMAGING REPORT ---
L KNEE 1 OR 2 VIEWS ROUTINE CLINICAL HISTORY: AP/LATERAL IN PACU LEFT KNEE joint replacement COMPARISON: None. DISCUSSION: Anatomic alignment status post total left knee arthroplasty. Expected soft tissue postoperative change. IMPRESSION: Anatomic alignment status post total left knee arthroplasty The above report was generated using voice recognition software. It may contain grammatical, syntax or spelling errors. Electronically signed by: Leland Lee M.D. 11/04/2016 9:40 AM Dictated Date/Time: 11/04/2016 9:39 AM
[2016-11-04] MEDS: OXYCODONE HCL IR 5 MG TAB (IMMEDIATE RELEASE) PO PRN ×2 (11:16→18:48)
[2016-11-04] MEDS: SODIUM CHLORIDE 0.9% 1000ML 1,000 ML IV SCH ×3 (11:17→21:51)
[2016-11-04] MEDS: TAPENTADOL ER 50 MG TABCR PO SCH ×2 (12:00→21:50)
[2016-11-04] MEDS: BuPROPion XL 300 MG TABCR PO SCH (12:02)
[2016-11-04] MEDS: DOCUSATE SODIUM 100 MG CAP PO SCH ×2 (12:03→21:42)
[2016-11-04] MEDS: FUROSEMIDE 20 MG TAB PO SCH (12:03)
[2016-11-04] MEDS: FERROUS GLUCONATE 324 MG TAB PO SCH ×2 (12:03→17:54)
[2016-11-04] MEDS: PANTOprazole SOD 40 MG TAB PO SCH (12:03)
[2016-11-04] MEDS: MULTIVITAMIN TAB PO SCH (12:04)
[2016-11-04] MEDS: CALCIUM 600MG + VIT D 400 IU TAB PO SCH (12:04)
[2016-11-04] MEDS ORDERED: INFLUENZA VACCINE HIGH DOSE 65+ 0.5 ML SYR IM. ONE (12:15)
[2016-11-04] MEDS ORDERED: INFLUENZA ADMINISTRATION CHARGE ONE (12:15)
[2016-11-04] MEDS: CEFAZOLIN IV 2,000 MG in DEXTROSE 5% 50ML 50 ML IV SCH ×2 (14:35→21:50)
[2016-11-04] MEDS: KETOROLAC TROMETHAMINE 15 MG/ML VIAL IV. SCH ×2 (14:35→19:35)
[2016-11-04] MEDS: ACETAMINOPHEN 500 MG TAB PO SCH ×2 (14:35→21:52)
[2016-11-04] MEDS: CHECK SCOPOLAMINE PATCH PLACEMENT SCH (15:57)
--- NOTE | 2016-11-04 20:48 | PROGRESS NOTE ---
DATE: 11/04/2016 SUBJECTIVE: A 71-year-old white female postop from a left knee replacement. She is doing pretty well. She is walking with a walker from the bathroom to her chair when I visited her this evening. Pain is controlled. Denies any chest pain or shortness of breath. Not feeling dizzy or lightheaded. OBJECTIVE: VITAL SIGNS: Temperature 36.4. Vital signs stable. PHYSICAL EXAMINATION: GENERAL: This is a pleasant elderly female. She is walking quite well with a walker. LUNGS: Clear to auscultation. HEART: Regular rate and rhythm. ABDOMEN: Soft, nontender, nondistended. EXTREMITIES: Grossly neurovascularly intact except as follows: Examination of the left leg reveals the dressing to be clean, dry and intact. She can dorsiflex and plantarflex her foot appropriately. She is neurologically intact. X-RAYS: X-rays of left knee from recovery room were reviewed. It shows a left cemented posterior stabilized total knee arthroplasty. Components looked to be in good position. No signs of problems. ASSESSMENT: A 71-year-old white female, postop from a left knee replacement, doing well. Pain seems to be controlled. She is getting around reasonably well for just being postop. She is neurologically intact. PLAN: 1. DVT prophylaxis including thigh-high TEDs, SCDs, and aspirin twice a day. 2. PT/OT. Weightbearing as tolerated. Left total knee protocol. 3. Pain control, doing well with current pain regimen. 4. IV antibiotics x24 hours. 5. Disposition: She is hoping to be discharged to the [facility] for a brief rehab stay. She lives by herself. Apparently her insurance did not cover [facility] last visit.
[2016-11-04] MEDS: ASPIRIN 325 MG ECTAB PO SCH (21:42)
[2016-11-04] MEDS: ATORVASTATIN 10 MG TAB PO SCH (21:42)
[2016-11-04] MEDS: SENNA 8.6 MG TAB PO SCH (21:43)
[2016-11-04] MEDS: SERTRALINE HCL 50 MG TAB PO SCH (21:43)
[2016-11-05] MEDS: CHECK SCOPOLAMINE PATCH PLACEMENT SCH ×4 (00:12→23:11)
[2016-11-05] MEDS: KETOROLAC TROMETHAMINE 15 MG/ML VIAL IV. SCH ×4 (01:49→20:38)
[2016-11-05 03:25] VITALS: BP 117/72; PULSE 79; TEMP 36.6; O2SAT 94
[2016-11-05] MEDS: SODIUM CHLORIDE 0.9% 1000ML 1,000 ML IV SCH (05:05)
[2016-11-05] MEDS: ACETAMINOPHEN 500 MG TAB PO SCH ×3 (05:06→21:33)
[2016-11-05 06:58] LABS: HEMATOCRIT 30.3 % (37-47); MEAN CELL VOLUME 93.8 fL (80-100); MEAN CORPUSCULAR HEMOGLOBIN 31.3 pg (25-34); MEAN CORPUSCULAR HGB CONC 33.3 g/dl (32-36); MEAN PLATELET VOLUME 9.5 fL (7.4-10.4); PLATELET COUNT 270 K/uL (130-400); RED BLOOD COUNT 3.23 M/uL (4.2-5.4); WHITE BLOOD COUNT 9.84 K/uL (4.8-10.8)
[2016-11-05 06:59] VITALS: BP 128/76; PULSE 72; TEMP 36.5; O2SAT 95
[2016-11-05 07:24] LABS: BUN/CREATININE RATIO 18.4 (10-20); CALCIUM 8.1 mg/dl (8.5-10.1); CREATININE 0.92 mg/dl (0.60-1.20); POTASSIUM 4.3 mmol/L (3.5-5.1)
[2016-11-05] MEDS ORDERED: ASPEC325 PO (08:17)
[2016-11-05] MEDS ORDERED: ACET-24 PO (08:17)
[2016-11-05] MEDS ORDERED: RXC5 PO (08:17)
[2016-11-05] MEDS ORDERED: NCYSR50 PO (08:17)
--- NOTE | 2016-11-05 08:19 | Discharge Instructions ---
Discharge Instructions Date of Service Nov 05, 2016. Admission Reason for Admission: Left Knee Degenerative Joint Disease Discharge Discharge Diagnosis / Problem: Left Knee Replacement Discharge Goals Goal(s): Decrease discomfort, Improve function, Increase independence, Improve disease control, Therapeutic intervention Activity Recommendations Activity Level: Assistance Required Therapies: Physical Therapy, Occupational Therapy Weightbearing Status: Left weightbearing . Additional Information Patient informed of condition: Yes Advance Directives: Yes DNR: No Level of Care: Skilled Communicable Disease: No Prognosis: Improving Goss Catheter: No Instructions / Follow-Up Instructions / Follow-Up ACTIVITY RECOMMENDATIONS: Physical Therapy: * You will go to physical therapy three times each week for four to six weeks after your surgery in order to regain your knee range of motion and to retrain your knee to work properly. * It is just as important to make sure you are getting your knee perfectly straight as it is to regain your knee bend. * Taking a pain pill an hour before therapy can help you have a more productive and comfortable therapy session. Home Exercise: * You were shown a series of exercises (heel props, heel slides, etc.) in the hospital. Do these exercises three to four times each day including the exercises you were shown in physical therapy. Walking: * Get up and walk several times each day. For the first four weeks, try not to stand or walk for more than one hour at a time. If you do stand or walk for more than one hour, you will not hurt anything, but your knee and leg will likely swell. * As you feel comfortable, you may change from the walker or crutches to a cane and then to independent walking. MEDICATIONS: New Medicine: * You will likely be taking one or more of these medications: 1. Nucynta - A long-acting pain medication. Take 1 tablet twice a day for the first ten days to decrease your baseline level of pain. 2. Oxycodone - A quick and shorter-acting pain medication. Take one to two tablets every four to six hours to lessen your pain. 3. Iron Sulfate - Take three times each day for the month after surgery to help you replace the blood lost during surgery. 4. Aspirin - Thins your blood to lessen the chance of forming a blood clot. * The most common side effects of pain medicine and iron are nausea and constipation. If nausea or constipation is too much of a problem or if you have any questions about your new medicines or doses, call [facility] at [phone]. We will try to help you manage these issues. VERY IMPORTANT TO READ AND REVIEW" Pain: * The immediate post-operative period after knee replacement surgery is often quite painful. * You are given a prescription for pain medicine. You should take it, as directed, when you need it, especially before physical therapy and before going to bed. Pain that interferes with sleep is very common and can last several months. * You will likely need pain medicine for the first four to six weeks. It will not stop all of the pain. The pain will lessen and as you feel better, you may change to milder pain medicine such as Tylenol. * The most common side effects of pain medicine are nausea and constipation, so don't take more than you need. SPECIAL CARE INSTRUCTIONS: TEDs/Elastic Stockings: * The white elastic stockings help limit swelling and prevent blood clots from forming in your legs. The more you wear them, the more they work. * Wear them for six weeks after knee replacement surgery and four weeks after partial knee replacement. Prevention of Infection: * Take antibiotics one hour before any dental cleaning, dental work, urological procedure, gastrointestinal procedure or any invasive surgery in order to prevent your new joint from getting infected. * You may get the antibiotics from the doctor performing the procedure or you may call our office at before and we will call in a prescription to the pharmacy of your choice. Things to Watch For: * Drainage from the incision site that occurs more than one week after your surgery. * Severely increased knee/leg pain or swelling. * Increased redness at the incision site. * Fever above 102 degrees Fahrenheit. * Unusual chest pain or shortness of breath. * Unusual pain or burning with urination. Call [facility] at with any of the above problems or if you have any questions about your medicines or recovery. FOLLOW UP VISIT: Make an appointment to see your doctor for approximately two weeks after surgery for a progress check and staple removal by calling the office at . Current Hospital Diet Patient's current hospital diet: Diabetes Type 2 Diet Discharge Diet Recommended Diet: Diabetes Type 2 Diet Procedures Procedures Performed: Left Total Knee Arthroplasty Pending Studies Studies pending at discharge: no Medical Emergencies . Who to Call and When: Medical Emergencies: If at any time you feel your situation is an emergency, please call 911 immediately. . Non-Emergent Contact Non-Emergency issues call your: Surgeon . . "Provider Documentation" section prepared by Demetri Freeman. . Core Measure Problem Core Measures: None
[2016-11-05] MEDS: TAPENTADOL ER 50 MG TABCR PO SCH ×2 (08:26→20:42)
[2016-11-05] MEDS: OXYCODONE HCL IR 5 MG TAB (IMMEDIATE RELEASE) PO PRN ×3 (08:27→16:00)
[2016-11-05] MEDS: FUROSEMIDE 20 MG TAB PO SCH (08:27)
[2016-11-05] MEDS: CALCIUM 600MG + VIT D 400 IU TAB PO SCH (08:28)
[2016-11-05] MEDS: MULTIVITAMIN TAB PO SCH (08:28)
[2016-11-05] MEDS: DOCUSATE SODIUM 100 MG CAP PO SCH ×2 (08:28→20:38)
[2016-11-05] MEDS: FERROUS GLUCONATE 324 MG TAB PO SCH ×3 (08:29→18:42)
[2016-11-05] MEDS: BuPROPion XL 300 MG TABCR PO SCH (08:29)
[2016-11-05] MEDS: PANTOprazole SOD 40 MG TAB PO SCH (08:29)
[2016-11-05] MEDS: ASPIRIN 325 MG ECTAB PO SCH ×2 (08:29→20:39)
[2016-11-05] MEDS: LOSARTAN POTASSIUM 25 MG TAB PO SCH (08:30)
--- NOTE | 2016-11-05 08:37 | PROGRESS NOTE ---
DATE: 11/05/2016 SUBJECTIVE: 71-year-old white female postop day 1 from a left knee replacement. She is doing pretty well. This knee is quite a bit more painful than her previous one 5 months ago. No other complaints. No chest pain or shortness of breath. Not feeling dizzy or lightheaded. OBJECTIVE: VITAL SIGNS: Temperature 36.5. Vital signs stable. PHYSICAL EXAMINATION: GENERAL: Reveals a supplement elderly female. She is sitting up in her bedside chair and looks pretty comfortable. EXTREMITIES: Examination of the left leg reveals the dressing to be clean, dry and intact. She can dorsiflex and plantarflex her foot appropriately. She is neurologically intact. LABORATORY DATA: Hemoglobin 10.1, hematocrit 30.3. Electrolytes are stable. ASSESSMENT: 71-year-old white female postop day 1 from a left knee replacement, doing pretty well. Having a little bit more pain, but this is probably the more expected course. PLAN: 1. DVT prophylaxis including thigh-high TEDs, SCDs, and aspirin twice a day. 2. PT/OT. Weightbearing as tolerated. Left total knee protocol. 3. Pain control, doing pretty well with current pain regimen. 4. Disposition: She is hoping to be discharged to the [facility] for a brief rehab stay. She needs to stay 3 nights before transfer to a senior living facility.
--- NOTE | 2016-11-05 10:14 | Anesthesiology Progress Note ---
Anesthesia Post Op Note Date & Time Nov 05, 2016 at 10:13 Vital Signs Pain Intensity: 5.0 Vital Signs Past 12 Hours Date Time Temp Pulse Resp B/P (MAP) Pulse Ox O2 Delivery O2 Flow Rate FiO2 11/05/16 07:05 Room Air CPAP 11/05/16 06:59 36.5 72 19 128/76 (93) 95 CPAP 11/05/16 03:25 36.6 79 18 117/72 (87) 94 CPAP 11/04/16 23:30 Room Air 11/04/16 23:13 36.5 64 18 119/75 (90) 97 CPAP Notes Mental Status: alert / awake / arousable, participated in evaluation Pt Amnestic to Procedure: Yes Nausea / Vomiting: adequately controlled Pain: adequately controlled Airway Patency, RR, SpO2: stable & adequate BP & HR: stable & adequate Hydration State: stable & adequate Neuraxial Anesthesia: was administered, sensory block resolved No anesthesia complication. Happy with care.
--- NOTE | 2016-11-05 10:32 | Anesthesiology Progress Note ---
Anesthesia Post Op Note Date & Time Nov 05, 2016 at 10:28 Vital Signs Pain Intensity: 5.0 Vital Signs Past 12 Hours Date Time Temp Pulse Resp B/P (MAP) Pulse Ox O2 Delivery O2 Flow Rate FiO2 11/05/16 07:05 Room Air CPAP 11/05/16 06:59 36.5 72 19 128/76 (93) 95 CPAP 11/05/16 03:25 36.6 79 18 117/72 (87) 94 CPAP 11/04/16 23:30 Room Air 11/04/16 23:13 36.5 64 18 119/75 (90) 97 CPAP Notes Mental Status: alert / awake / arousable, participated in evaluation Pt Amnestic to Procedure: Yes Nausea / Vomiting: adequately controlled Pain: adequately controlled Airway Patency, RR, SpO2: stable & adequate BP & HR: stable & adequate Hydration State: stable & adequate Neuraxial Anesthesia: was administered, sensory block resolved No anesthesia complications
[2016-11-05 11:35] VITALS: BP 118/74; PULSE 71; O2SAT 95
[2016-11-05 15:47] VITALS: BP 117/69; PULSE 82; TEMP 36.8; O2SAT 100
[2016-11-05] MEDS: SERTRALINE HCL 50 MG TAB PO SCH (20:39)
[2016-11-05] MEDS: ATORVASTATIN 10 MG TAB PO SCH (20:39)
[2016-11-05] MEDS: SENNA 8.6 MG TAB PO SCH (20:39)
[2016-11-05 23:08] VITALS: BP 118/69; PULSE 79; TEMP 36.9; O2SAT 96
[2016-11-06] MEDS: KETOROLAC TROMETHAMINE 15 MG/ML VIAL IV. SCH ×2 (01:32→07:52)
[2016-11-06] MEDS: ACETAMINOPHEN 500 MG TAB PO SCH ×3 (06:04→21:41)
[2016-11-06 06:30] VITALS: BP 120/75; PULSE 75; TEMP 36.8; O2SAT 98
[2016-11-06] MEDS: CHECK SCOPOLAMINE PATCH PLACEMENT SCH ×3 (07:48→22:00)
[2016-11-06] MEDS: PANTOprazole SOD 40 MG TAB PO SCH (07:53)
[2016-11-06] MEDS: LOSARTAN POTASSIUM 25 MG TAB PO SCH (07:53)
[2016-11-06] MEDS: FERROUS GLUCONATE 324 MG TAB PO SCH ×3 (07:53→17:24)
[2016-11-06] MEDS: DOCUSATE SODIUM 100 MG CAP PO SCH ×2 (07:53→20:31)
[2016-11-06] MEDS: CALCIUM 600MG + VIT D 400 IU TAB PO SCH (07:54)
[2016-11-06] MEDS: FUROSEMIDE 20 MG TAB PO SCH (07:54)
[2016-11-06] MEDS: MULTIVITAMIN TAB PO SCH (07:54)
[2016-11-06] MEDS: ASPIRIN 325 MG ECTAB PO SCH ×2 (07:54→20:31)
[2016-11-06] MEDS: BuPROPion XL 300 MG TABCR PO SCH (07:55)
[2016-11-06] MEDS: TAPENTADOL ER 50 MG TABCR PO SCH ×2 (07:59→20:31)
[2016-11-06] MEDS: OXYCODONE HCL IR 5 MG TAB (IMMEDIATE RELEASE) PO PRN ×2 (07:59→14:04)
--- NOTE | 2016-11-06 09:41 | PROGRESS NOTE ---
DATE: 11/06/2016 SUBJECTIVE: 71-year-old white female postop day 2 from a left knee replacement. She is doing pretty well. Pain seems to be better controlled today. No chest pain or shortness of breath. Not feeling dizzy or lightheaded. OBJECTIVE: VITAL SIGNS: Temperature 36.8. Vital signs stable. PHYSICAL EXAMINATION: GENERAL: Shows pleasant elderly female. She is lying in bed this morning and looks pretty comfortable. LUNGS: Clear to auscultation. HEART: Regular rate and rhythm. ABDOMEN: Soft, nontender, nondistended. EXTREMITIES: Grossly neurovascularly intact except as follows: Examination of the left lower extremity reveals the dressing to be clean, dry and intact. Leg is well aligned. She can dorsiflex and plantarflex her foot appropriately. She is neurologically intact. ASSESSMENT: 71-year-old white female postop day 2 from left total knee replacement, doing pretty well. Pain seems to be better controlled. PLAN: 1. DVT prophylaxis including thigh-high TEDs, SCDs, and aspirin twice a day. 2. PT/OT. Weightbearing as tolerated. Left total knee protocol. 3. Pain control, doing pretty well with current pain regimen. 4. Disposition: She is hoping to be discharged to the [facility]. We are waiting to hear about a bed availability and approval. She will need a 3-night stay.
[2016-11-06 15:10] VITALS: BP 121/67; PULSE 75; TEMP 36.9; O2SAT 99
[2016-11-06 19:27] VITALS: BP 131/83; PULSE 60; TEMP 36.6; O2SAT 94
[2016-11-06] MEDS: SENNA 8.6 MG TAB PO SCH (20:31)
[2016-11-06] MEDS: ATORVASTATIN 10 MG TAB PO SCH (20:31)
[2016-11-06] MEDS: SERTRALINE HCL 50 MG TAB PO SCH (20:32)
[2016-11-06 22:59] VITALS: BP 149/78; PULSE 92; TEMP 36.9; O2SAT 98
[2016-11-06] MEDS ORDERED: NURSING VERBAL MED ORDER ONE (23:15)
[2016-11-07] MEDS: ACETAMINOPHEN 500 MG TAB PO SCH (05:32)
[2016-11-07 06:22] VITALS: BP 110/68; PULSE 76; TEMP 36.7; O2SAT 97
[2016-11-07] MEDS: FUROSEMIDE 20 MG TAB PO SCH (07:21)
[2016-11-07] MEDS: MULTIVITAMIN TAB PO SCH (07:21)
[2016-11-07] MEDS: ASPIRIN 325 MG ECTAB PO SCH (07:21)
[2016-11-07] MEDS: PANTOprazole SOD 40 MG TAB PO SCH (07:21)
[2016-11-07] MEDS: LOSARTAN POTASSIUM 25 MG TAB PO SCH (07:21)
[2016-11-07] MEDS: BuPROPion XL 300 MG TABCR PO SCH (07:21)
[2016-11-07] MEDS: CALCIUM 600MG + VIT D 400 IU TAB PO SCH (07:21)
[2016-11-07] MEDS: DOCUSATE SODIUM 100 MG CAP PO SCH (07:22)
[2016-11-07] MEDS: FERROUS GLUCONATE 324 MG TAB PO SCH (07:22)
[2016-11-07] MEDS: TAPENTADOL ER 50 MG TABCR PO SCH (07:24)
[2016-11-07 07:31] VITALS: BP 110/68; PULSE 76; TEMP 36.7; O2SAT 97
--- NOTE | 2016-11-07 07:41 | PROGRESS NOTE ---
DATE: 11/07/2016 SUBJECTIVE: 71-year-old white female postop day 3 from a left knee replacement. She is doing better. The pain seemed to get a little bit better daily. No new complaints. No chest pain or shortness of breath. OBJECTIVE: VITAL SIGNS: Temperature 36.7. Vital signs stable. PHYSICAL EXAMINATION: Reveals the left leg to be well aligned. The wound is clean, dry and intact. No significant drainage. Calf is soft and supple. She is neurologically intact. ASSESSMENT: 71-year-old white female postop day 3 from a left knee replacement, doing pretty well. Pain seems to be getting better daily. PLAN: 1. DVT prophylaxis including thigh-high TEDs, SCDs, and aspirin twice a day. 2. PT/OT. Weight bear as tolerated. Left total knee protocol. 3. Pain control, doing pretty well with current pain regimen. 4. Disposition: She is hoping to be discharged to the [facility] later today.
--- NOTE | 2016-11-11 00:13 | DISCHARGE SUMMARY ---
ADMITTING PHYSICIAN AND SURGEON: Dr. Freeman. ADMITTING DIAGNOSIS: Left knee degenerative joint disease. SURGERY PERFORMED: Left total knee arthroplasty. SECONDARY DIAGNOSES: Diabetes, hypertension, sleep apnea, obesity, gastroesophageal reflux disease. CONSULTS: None obtained. HISTORY AND PHYSICAL EXAMINATION: Well documented in the patient's chart. HOSPITAL COURSE: The patient was admitted on 11/04/2016, underwent total knee arthroplasty, tolerated the procedure well, there were no complications. She was transferred to the PACU postoperatively and later to the orthopedic floor for further care. She was given Ancef for antibiotic prophylaxis; CARY stockings, SCDs and aspirin for DVT prophylaxis. Hemoglobin, hematocrit and vital signs were monitored during her hospital stay and remained stable. She developed some postoperative anemia with hemoglobin of 10.1. She did not require any blood transfusions. There were no complications. By postoperative day 2, she was tolerating a diabetic diet. Pain was controlled with oral pain medicine. She was participating in physical therapy and had no signs or symptoms of deep vein thrombosis. On postoperative day 2, she was transferred to a long term facility. She was given printed discharge instructions including new prescriptions for extra strength Tylenol, aspirin 325 mg b.i.d., oxycodone and Nucynta. Continue her home medications with the exception of her home dose of aspirin and Tylenol which were changed. Continue physical therapy. Weightbearing as tolerated. CARY stockings. Follow up in 10-12 days or sooner if there are any problems or concerns.
== END 2016-11-07 10:31 | DRG 470 ==
LOC: C.ACU 05:03 → C.3E 06:35 → ENRESERV 09:32
PROVIDERS: ADMIT Orthopaedic Surgery Sports Medicine; ATTEND Orthopaedic Surgery Sports Medicine
PROC: 0SRD0J9 Replacement of Left Knee Joint with Synthetic Substitute, Cemented, Open Approach (ICD-10-PCS; principal; 2016-11-04 07:00)
DX: M17.12 Unilateral primary osteoarthritis, left knee (principal); Z68.41 Body mass index [BMI] 40.0-44.9, adult; E11.9 Type 2 diabetes mellitus without complications; I10 Essential (primary) hypertension; G47.30 Sleep apnea, unspecified; E66.9 Obesity, unspecified; K21.9 Gastro-esophageal reflux disease without esophagitis; Z79.899 Other long term (current) drug therapy; Z79.82 Long term (current) use of aspirin; Z79.84 Long term (current) use of oral hypoglycemic drugs; Z96.651 Presence of right artificial knee joint

== ENCOUNTER 2023-05-07 05:16 | Inpatient (IN) ==
--- NOTE | 2023-04-08 12:33 | PAT Medication Instructions ---
Medication Instructions Date of Service April 08, 2023 Home Medications Medication Instructions Recorded CPAP Machine #1 ea 02/16/20 miscellaneous medical supply #1 unit 04/03/20 acetaminophen 325 mg capsule (Tylenol) 1 tab PO QID PRN Pain aspirin 81 mg chewable tablet 81 mg PO QAM bupropion HCl 300 mg 24 hr tablet, extended release (Wellbutrin XL) 300 mg PO QAM multivitamin 1 tab PO QAM omega 0-jcg-ulj-fish oil 1,000 mg (120 mg-180 mg) capsule (Fish Oil) 1 tab PO QAM omeprazole 20 mg tablet,delayed release 20 mg PO QAM sertraline 25 mg tablet 25 mg PO QAM metformin 500 mg tablet,extended release 24 hr 500 mg PO QAM atorvastatin 40 mg tablet 40 mg PO QAM semaglutide 0.25 mg or 0.5 mg (2 mg/1.5 mL) subcutaneous pen injector (Ozempic) 1 mg subcut Q7D STOP taking 2 weeks before surgery omega 4-kav-gzd-fish oil 1,000 mg (120 mg-180 mg) capsule (Fish Oil) 1 tab PO QAM STOP taking 7 days before surgery semaglutide 0.25 mg or 0.5 mg (2 mg/1.5 mL) subcutaneous pen injector (Ozempic) 1 mg subcut Q7D DO NOT take the morning of surgery multivitamin 1 tab PO QAM metformin 500 mg tablet,extended release 24 hr 500 mg PO QAM Take morning of surgery With a small sip of water, OTHERWISE NOTHING TO EAT OR DRINK AFTER MIDNIGHT: acetaminophen 325 mg capsule (Tylenol) 1 tab PO QID PRN Pain (if needed) aspirin 81 mg chewable tablet 81 mg PO QAM (unless surgeon directed otherwise) bupropion HCl 300 mg 24 hr tablet, extended release (Wellbutrin XL) 300 mg PO QAM omeprazole 20 mg tablet,delayed release 20 mg PO QAM sertraline 25 mg tablet 25 mg PO QAM atorvastatin 40 mg tablet 40 mg PO QAM Take evening before surgery acetaminophen 325 mg capsule (Tylenol) 1 tab PO QID PRN Pain (if needed) Other Notes If you have any questions please call us at [phone] or [phone] or [phone] or [phone]
--- NOTE | 2023-04-13 14:14 | Anesthesiology Consultation ---
Date of Service April 13, 2023 Assessment & Plan (1) Encounter for pre-operative examination: Chart Review Chart Review: Acceptable Risk for Surgery and Patient NOT seen in Pre Admission Testing - Check BSG AM DOS - Ozempic instructions: Patient takes on (). Patient informed at PAT visit to stop 7 days prior to surgery- voiced understanding. Patient advised to check with prescriber to see if alternative diabetic management changes recommended while holding Ozempic- if so, patient to call back to PAT to update chart and discuss if any further preop medication instructions needed. Patient's last dose of Ozempic with be 04/30/23- will be off Ozempic x 7 days prior to DOS on 05/07/23. - Patient is NOT an ideal OPJ candidate (currently 23 hour obs) Per PAT appt on 04/13/23, no recent illness/disease exposures, illness related symptoms, or recent illness/disease positive tests. Will leave to surgeon's discretion if preop Covid testing needed Left TKA 11/04/2016 = done under [facility] at L3 with 1 attempt. Teaching & Discussion Pre-Anesthesia Teaching/Discussion Notes: Instructed NPO after midnight before surgery,except medications with 15 cc of water. Medication instructions provided according to the PAT guidelines. History Surgery Operation Date: 05/07/23 10:40 Proposed Procedures p Left Total Hip Arthroplasty - Demetri Freeman MD Height/Weight Height: 5 ft 4 in Weight: 128.1 kg Allergies Allergy/AdvReac Type Severity Reaction Status Date / Time bacitracin Allergy Intermediate REDNESS Verified 04/03/23 09:04 neomycin Allergy Intermediate REDNESS Verified 04/03/23 09:04 polymyxin B Allergy Intermediate REDNESS Verified 04/03/23 09:04 lisinopril Allergy Mild cough Verified 04/03/23 09:04 Medications Home Medications Medication Instructions Recorded Confirmed Last Taken acetaminophen 325 mg capsule 1 tab PO QID PRN Pain 11/05/17 04/03/23 08/24/19 (Tylenol) aspirin 81 mg chewable tablet 81 mg PO QAM 11/05/17 04/03/23 09/28/19 09:00 bupropion HCl 300 mg 24 hr tablet, 300 mg PO QAM 11/05/17 04/03/23 09/28/19 09:00 extended release (Wellbutrin XL) multivitamin 1 tab PO QAM 11/05/17 04/03/23 09/28/19 09:00 omega 2-dxw-pfx-fish oil 1,000 mg 1 tab PO QAM 11/05/17 04/03/23 09/28/19 09:00 (120 mg-180 mg) capsule (Fish Oil) omeprazole 20 mg tablet,delayed 20 mg PO QAM 09/21/19 04/03/23 09/28/19 07:00 release CPAP Machine #1 ea 02/16/20 03/18/23 Unknown miscellaneous medical supply #1 unit 04/03/20 03/18/23 Unknown sertraline 25 mg tablet 25 mg PO QAM 02/13/21 04/03/23 Unknown metformin 500 mg tablet,extended 500 mg PO QAM 03/19/22 04/03/23 Unknown release 24 hr atorvastatin 40 mg tablet 40 mg PO QAM 03/18/23 04/03/23 Unknown semaglutide 0.25 mg or 0.5 mg (2 1 mg subcut Q7D 03/18/23 04/03/23 Unknown mg/1.5 mL) subcutaneous pen injector (Ozempic) Past Medical History Medical History Anxiety CKD (chronic kidney disease) Depression Diabetes mellitus, type 2 NIDDM Hgb A1C 5.8 on 03/26/23 Difficulty swallowing - "sometimes has trouble w/ swallowing her saliva or mucous, moves it around in her mouth to get it in the right spot to swallow" (present x years) - No issues with pills; did EGD two years ago for dysphagia- had dilation done at that time Diverticular disease No recent diverticulitis GERD (gastroesophageal reflux disease) well controlled and stable Hiatal hernia History of anemia No current iron supplement; no hx of blood transfusion History of COVID-summer, home test, not hosp; mild symptoms>resolved Hyperlipidemia Hypertension Morbid obesity with BMI of 45.0-49.9, adult Osteoarthritis Sleep apnea cpap Exercise / Class Metabolic Activity III < 4 Walking/Shop/Light housework (no chest pain or SOB with flat surface ambulation - uses cane/walker) Past Family History Family History Father Family history of diabetes mellitus Mother Family hx of colon cancer Other No family history of adverse response to anesthesia Past Surgical History Surgical History History of cataract surgery rt/lt History of colonoscopy with polypectomy History of esophagogastroduodenoscopy (EGD) w/dilation History of left shoulder replacement History of tooth extraction History of total left knee replacement (TKR) History of total right hip replacement History of total right knee replacement (TKR) History of wisdom tooth extraction Hx of tubal ligation Past Anesthesia History No Hx of Anesthesia Complications and No Family Hx of Anesthesia Complications History of PONV No Hx of PONV and No Hx of Motion Sickness Social History Smoking Status: Former smoker tobacco type: cigarettes Do You Dip or Chew Tobacco: No Smoking End Date: 1998 Hx Alcohol Use: Yes Alcohol type: wine alcohol intake frequency: holidays/special occasions only Hx Substance Use: No substance use type: does not use Review of Systems Patient denies chest pain, shortness of breath at rest, cough, wheezing, palpitations. No hx of seizures, stroke, IN. No hx of blood clots or blood transfusions Physical Exam Vital Signs VITALS BP 123/81 P 80 TEMP 98.0 SP02 94% RESP 16 Constitutional no acute distress ENMT Mouth: no TMJ clicking Thyromental Distance: > or= 3.5 Finger Breadths (3.5) Mallampati Class: I (smaller airway) Missing molars Permanent bridge to top front and bottom sides Caps and crowns to side teeth and molars Neck neck extension not limited Respiratory normal respiratory effort; no respiratory distress Auscultation: lungs clear to auscultation bilaterally; no wheezes Cardiovascular Rate/Rhythm: regular rate and regular rhythm Heart Sounds: no murmur Vessels: no carotid bruit Musculoskeletal Spine: no pain with cervical ROM Extremities: extremities normal to inspection Psychiatric Orientation: alert Lab Results Anesthesia Preop Results Results Anesthesia Widget: WBC 9.05 K/ul (4.8-10.8) 04/13/23 Hgb 13.1 g/dl (12.0-16.0) 04/13/23 Hct 39.6 % (37.0-47.0) 04/13/23 Plt 385 K/uL (130-400) 04/13/23 Na 136 mmol/L (136-145) 04/13/23 K 4.1 mmol/L (3.5-5.1) 04/13/23 Cl 102 mmol/L (98-107) 04/13/23 CO2 25 mmol/L (21-32) 04/13/23 BUN 17 mg/dl (6-23) 04/13/23 Creat 0.85 mg/dl (0.6-1.2) 04/13/23 Glucose Level 133 mg/dl (70-99(Fasting)) H 04/13/23 PT 10.2 Seconds (9.0-12.0) 04/13/23 PTT 28 Seconds (21-31) 04/13/23 INR 0.9 (0.9-1.1) 04/13/23 Blood Type A Negative 04/13/23 Antibody Screen NEGATIVE 04/13/23 Testing Laboratory Results 03/26/23= HGB A1C: 5.8 Electrocardiogram Date: 04/13/23 Findings: + NSR @ (73bpm) Normal EKG per cardio Chest X-Ray Date: 04/13/23 Findings: + NAD FINDINGS: PA and lateral chest radiographs are compared to study dated 11/10/2017. The cardiomediastinal silhouette is unremarkable. The lungs and pleural spaces are clear. There is no pneumothorax. The skeletal structures are osteopenic. The bony thorax appears intact. A left shoulder arthroplasty is in place. Degenerative change is noted in the spine.
--- NOTE | 2023-05-02 08:50 | History & Physical Report ---
Date of Service May 02, 2023 Assessment & Plan (1) Arthritis of left hip: 77-year-old female status post bilateral knee replacements as well as a right knee hip replacement in the past in the left shoulder replacement with advanced left hip arthritis. This has progressed significantly over the past 2 years. She failed conservative treatment. She was hoping to lose some weight but unsuccessful in doing this and would not like to just have her hip fixed. Plan: Orgran taken the operating do left total hip placed. The risks Mente this procedure planed the patient clued but not limited to DVT PE infection neurological and vascular bleeding palm pain limb range of motion test is fairly of symptoms incomplete relief of symptoms need for further surgery in future excetra. The patient understands and desires to proceed. Informed consent was obtained. As far as discharge plan she is hoping to go to rehab postoperatively. After that her daughter can assist in her care for a period of time at home. She will need to hold her Ozempic 7 days preop. His insulin sliding scale coverage in the hospital. As far as DVT prophylaxis will use thigh-high teds, SCDs, aspirin twice a day. (2) History of total knee replacement: (3) History of total hip arthroplasty: History of Present Illness Chief Complaint: . Persistent left hip pain. Primary Care Provider: Kayla Segovia MD . Patient is a 77-year-old female well-known to me from previous bilateral knee replacement done back in 2017. These were done about 5 months apart. She had a long history of multiple orthopedic joint problems and replacement. She she had a left reverse shoulder done by Dr. Brumfield 5 years ago. She had a right hip replaced done at [facility] by Dr. Gutierrez in 2012. Over the past several years she developed increased pain discomfort in her left hip. She has a sense of instability in her knee as a result of the pain in her hip rating down to her knee. She limps more as the day goes on. She been gaining weight as a result of limited activities. She tried to lose weight but unsuccessful. She now like to have her left hip fixed. Allergies Allergy/AdvReac Type Severity Reaction Status Date / Time bacitracin Allergy Intermediate REDNESS Verified 04/03/23 09:04 neomycin Allergy Intermediate REDNESS Verified 04/03/23 09:04 polymyxin B Allergy Intermediate REDNESS Verified 04/03/23 09:04 lisinopril Allergy Mild cough Verified 04/03/23 09:04 Home Medications Medication Instructions Recorded Confirmed Type acetaminophen 325 mg capsule 1 tab PO QID PRN Pain 11/05/17 04/03/23 History (Tylenol) aspirin 81 mg chewable tablet 81 mg PO QAM 11/05/17 04/03/23 History bupropion HCl 300 mg 24 hr tablet, 300 mg PO QAM 11/05/17 04/03/23 History extended release (Wellbutrin XL) multivitamin 1 tab PO QAM 11/05/17 04/03/23 History omega 4-rnz-ysf-fish oil 1,000 mg 1 tab PO QAM 11/05/17 04/03/23 History (120 mg-180 mg) capsule (Fish Oil) omeprazole 20 mg tablet,delayed 20 mg PO QAM 09/21/19 04/03/23 History release CPAP Machine #1 ea 02/16/20 03/18/23 Rx miscellaneous medical supply #1 unit 04/03/20 03/18/23 Rx sertraline 25 mg tablet 25 mg PO QAM 02/13/21 04/03/23 History metformin 500 mg tablet,extended 500 mg PO QAM 03/19/22 04/03/23 History release 24 hr atorvastatin 40 mg tablet 40 mg PO QAM 03/18/23 04/03/23 History semaglutide 0.25 mg or 0.5 mg (2 1 mg subcut Q7D 03/18/23 04/03/23 History mg/1.5 mL) subcutaneous pen injector (Ozempic) Past Med/Surg History Medical History CKD (chronic kidney disease) History of COVID-summer, home test, not hosp; mild symptoms>resolved Difficulty swallowing - "sometimes has trouble w/ swallowing her saliva or mucous, moves it around in her mouth to get it in the right spot to swallow" (present x years) - No issues with pills; did EGD two years ago for dysphagia- had dilation done at that time Morbid obesity with BMI of 45.0-49.9, adult Hiatal hernia Diabetes mellitus, type 2 NIDDM Hgb A1C 5.8 on 03/26/23 History of anemia No current iron supplement; no hx of blood transfusion Osteoarthritis Diverticular disease No recent diverticulitis GERD (gastroesophageal reflux disease) well controlled and stable Depression Anxiety Hyperlipidemia Hypertension Sleep apnea cpap Surgical History History of total right hip replacement History of colonoscopy with polypectomy History of esophagogastroduodenoscopy (EGD) w/dilation History of left shoulder replacement History of total left knee replacement (TKR) History of total right knee replacement (TKR) History of tooth extraction History of wisdom tooth extraction Hx of tubal ligation History of cataract surgery rt/lt Family History Father Family history of diabetes mellitus Mother Family hx of colon cancer Other No family history of adverse response to anesthesia Social History Smoking Status: Former smoker Tobacco Type: Cigarettes Second Hand Exposure: Yes (hx as child); Do You Dip or Chew Tobacco: No; Hx Alcohol Use: Yes Alcohol type: wine Hx Substance Use: No Preferred Language: Urdu Communication Ability: Effective Conference Concierge Required: No Beliefs That Will Affect Care: None Current Living Situation: Alone Feels Safe at Home: Yes Assistive Devices: CPAP, Glasses and Walker Review of Systems All systems reviewed & are unremarkable except as noted in HPI & below. Physical Exam . Physical examination is a pleasant elderly female. Looks in reasonably good health. Examination left hip reveal patient walks with a cane. She clearly limps on the left side. Legs and ankles appear that she is a little bit shorter on the side compared to the right. She has pain and stiffness with hip motion. Limited internal rotation in neutral at best. Negative straight leg raise. She is neurologically intact. Constitutional WD/WN, vitals as above Neck trachea midline, no thyromegaly Respiratory normal respiratory effort, lungs clear to auscultation Cardiovascular RRR, no murmur, no edema Gastrointestinal (Abdomen) normal bowel sounds, soft, nontender, no hepatosplenomegaly Results & Data Results & Data Laboratory Results . Diagnostic Findings . X-rays of the left hip were reviewed. Shows advanced left hip arthritis. She got complete loss of the superior joint space. This has progressed significantly over the past 2 years compared to previous films. PG Care Time/CCT Total # of Minutes Spent Total Time Spent with Patient: Total time spent is greater than 50% in coordination of care (as documented) at patient's floor/unit and/or counseling patient: Coding Level of Care Code None Diagnoses Arthritis of left hip M16.12 History of total knee replacement Z96.659 History of total hip arthroplasty Z96.649
[2023-05-07] MEDS: ACETAMINOPHEN 500 MG TAB PO SCH ×2 (05:51→13:18)
[2023-05-07] MEDS: CeleBREX 200 MG CAP PO SCH (05:52)
[2023-05-07] MEDS: FAMOTIDINE 20 MG TAB PO SCH (05:52)
[2023-05-07] MEDS: LR 60ML/HR IV SCH (05:52)
[2023-05-07] MEDS: METOCLOPRAMIDE HCL 10 MG TABLET PO SCH (05:52)
[2023-05-07] MEDS: LR 500ML BOLUS, THEN 15ML/HR IV SCH (05:54)
[2023-05-07] MEDS: dexAMETHasone**PF** 10 MG/ML VIAL IV SCH (05:54)
[2023-05-07] MEDS ORDERED: BUPIVACAINE 0.5 % 5 MG/1 ML PF 10ML VIAL ONE (06:20)
[2023-05-07] MEDS ORDERED: PROPOFOL IV EMULSION 10 MG/ML 20 ML VIAL IV ONE (06:26)
[2023-05-07] MEDS ORDERED: MIDAZOLAM HCL 1 MG/ML 2ML VIAL ONE (06:27)
[2023-05-07] MEDS ORDERED: ePHEDrine sulfate 50 MG/ML AMP IV PRN (06:35)
[2023-05-07] MEDS ORDERED: fentaNYL citrate PF 100 MCG/2 ML VIAL IV PRN (06:35)
[2023-05-07] MEDS ORDERED: ONDANSETRON INJ 2 MG/ML 2 ML VIAL IV PRN ×2 (06:35→10:53)
[2023-05-07] MEDS ORDERED: ATROPINE SULFATE 0.1 MG/ML 10ML SYR IV PRN (06:35)
[2023-05-07] MEDS: TRANEXAMIC ACID 1,000 MG **IV Pre-op IV SCH (06:48)
--- NOTE | 2023-05-07 06:51 | History & Physical Bridge Note ---
Date of Service May 07, 2023 History & Physical Bridge Note I have examined the patient, reviewed the History & Physical and in the interval since the performance of the History & Physical I have noted the following changes of clinical significance: no changes noted
[2023-05-07] MEDS: ceFAZolin 3000MG 3,000 MG/72.5 ML BAG IV SCH (07:04)
[2023-05-07] MEDS ORDERED: PHENYLEPHRINE 100MCG/ML 10ML SYR IV ONE (07:13)
[2023-05-07] MEDS ORDERED: ePHEDrine sulfate 50 MG/ML AMP ONE (07:22)
[2023-05-07] MEDS: BUPIVACAINE/EPINEPHRINE 0.5% MPF 1:200,000 30 ML VIAL ONE (07:49)
[2023-05-07] MEDS ORDERED: ONDANSETRON INJ 2 MG/ML 2 ML VIAL ONE (08:11)
--- NOTE | 2023-05-07 09:48 | Operative Report ---
PG Post Operative Report Pre & Post Diagnosis Operation Date: 05/07/23 07:00 Pre-Op Diagnosis: Left Hip Advanced Degenerative Joint Disease Post-Op Diagnosis: Left Hip Advanced Degenerative Joint Disease I identified the patient and participated in the time-out.: Yes Procedure Operation Date: 05/07/23 07:00 Actual Procedures p Left Total Hip Arthroplasty, Uncemented(Left) - Demetri Freeman MD Surgeon Demetri Freeman MD Drilling Assistant Jaime Barboza PA-C Estimated Blood Loss 300 Findings Consistent with Post-Op Diagnosis Patient a very large soft tissue envelope. That she had extensive grade 4 [id number] disease the femoral head and acetabulum. Specimens Left femoral head sent for pathology. Complications none Disposition Accompanied Patient To Recovery: No Indications Patient is a 77-year-old female is had a long history of multiple arthritic joints. She had most all of her lower extremity joints replaced in the past. Over the past several years she developed increased pain discomfort in the left hip is gotten worse over the past year. She has had to resort to using a cane to get around. X-rays show advanced hip arthritis. She elected proceed with total hip arthroplasty. Of note, we attempted a weight loss program preoperatively but were unsuccessful. Description of Procedure Operative implants consist of: 1 Biomet G7 size 52 mm acetabular shell. 2. 6.5 cancellous acetabular screws 1 of 35 mm in length and 1 of 20 mm length. 3. Zoe hole underwriting support manager. 4. Highly cross-linked polyethylene liner with a 52 mm outer diameter and a 36 mm diameter. 5. DePuy Corail size 11 KLA femoral stem. 6. +5/36 mm ceramic articular ball. The patient was taken the operating, identified, placed on the operating table in supine position but a contact areas were appropriately padded. IV antibiotics were provided by anesthesia team. A spinal anesthetic had been implemented holding area. A Goss catheter was placed in sterile fashion. The patient was then placed in the right lateral decubitus position. Axillary roll was placed. Distal Birkett position was used for positioning. The left hip and leg were then prepped and draped in usual sterile fashion. A posterolateral approach to the left hip was then performed to a curvilinear incision centered over the greater trochanter. Sharp dissection through simultaneous tissue down of the IT band gluteal fascia. The IT band gluteal fascia incised longitudinally in line with skin incision. The greater trochanter bursa was excised. The piriformis and external rotators along with the posterior hip joint capsule were then released from the posterior aspect the hip as a single layer. Hip was internally rotated. Great care was taken throughout the procedure protect the sciatic nerve at all times. Hip was dis located. Femoral neck osteotomy cut was made with Final Cut about 15 mm above the lesser trochanter. Femoral head was removed and sent for pathology. The femur was retracted anteriorly. Attention drawn the acetabulum. The acetabular labrum was excised. Pulmonary fat was excised. Sequential reaming the acetabular was then performed again with size 43 and progressing up to 51. I reamed a little with a 52 reamer and then placed a 52 mm Biomet G7 acetabular shell in about 4 degrees lateral opening and 20 degrees of anteversion. We worked hard to get this in proper position to the large soft tissue envelope. There was then fixed with 2 screws. A significant anterior osteophyte was removed. Trial liner was placed. Attention drawn the femur. The proximal femur was then with a [employer] cutter followed by canal finder. I then broached beginning with a size 8 and progressing up to 11. Get excellent fit 11. Did not think I could fit the 12 down safely. We trialed the hip and the +5 articular ball seem to recreate appropriate soft tissue tension. The hip was fully stable full extension and external rotation flexion to 90 degrees internal Tatian over [address] We elect to place these implants. All trial implants were removed. An apex hole underwriting support manager was placed. Highly cross-linked polyethylene liner was placed. A size 11 KLA femoral stem was impacted in position. +5/36 mm ceramic articular ball was placed. Hip was located. Attention drawn toward closing. The wound was irrigated coconuts pulsatile lavage solution. I did inject locally with 60 cc of half percent Marcaine with epinephrine. The posterior capsule and external rotators then repaired through drills in the posterior trochanter with #2 Tycron suture. The IT band gluteal fascia then closed in 1 PDS suture running fashion. The subcutaneous tissue was closed with 3 layers with a deep layer #2 Vicryl suture, the intermediate layer with #1 Vicryl suture, and the subcutaneous tissues with 2 Dexon suture in a buried interrupted fashion. Skin was closed skin ciara. Leg was then cleaned and dried. A Prevena VAC dressing was applied due to the very large soft tissue envelope to prevent infection and to assist in wound healing. The patient then transferred to the recovery in stable condition. Patient tolerated procedure well and no complications. Zach Barboza, my physician tourist information assistant, was present for the entire procedure. His assistance was required for proper patient positioning, prepping and draping, surgical exposure, retraction, performing the technical details of the operation, placement of the implants, closure of the incision site and placement of this postoperative sterile dressing. I attest to the content of the Intraoperative Record and any orders documented therein. Any exceptions are noted below.
--- NOTE | 2023-05-07 10:02 | XRay Report ---
AP PELVIS, CROSSTABLE LATERAL LEFT HIP History: Left total hip arthroplasty. Degenerative arthritis. Postop. FINDINGS: The patient is status post a left total hip arthroplasty. The hardware is intact. No fractu re or dislocation. Prior right total hip arthroplasty again noted. Skin ciara are in place. IMPRESSION: Left total hip arthroplasty. No evidence for hardware complication. ACT 112: Negative or not required by law. Electronically signed by: Nikunj Gomez M.D. 05/07/2023 10:01 AM
--- NOTE | 2023-05-07 10:29 | Anesthesiology Progress Note ---
Date of Service May 07, 2023 Anesthesia Post Procedure Vital Signs Vital Signs: Temp Pulse Pulse Resp BP Pulse Ox O2 Del Method 05/07/23 10:20 76 20 117/63 96 Room Air 05/07/23 10:10 72 18 116/65 97 Room Air 05/07/23 10:00 72 16 121/69 100 Room Air 05/07/23 09:50 80 22 120/60 100 Oxymask 05/07/23 09:40 76 20 120/74 100 Oxymask 05/07/23 09:30 36.1 C L 77 14 126/78 97 Oxymask 05/07/23 05:44 Room Air 05/07/23 05:44 36.5 C 85 20 156/81 H 93 Room Air O2 Flow Rate 05/07/23 10:20 05/07/23 10:10 05/07/23 10:00 05/07/23 09:50 4 05/07/23 09:40 4 05/07/23 09:30 8 05/07/23 05:44 05/07/23 05:44 Transfer of Care Handoff Completed per policy Notes Mental Status: alert / awake / arousable Patient Amnestic to Procedure: Yes Nausea / Vomiting: adequately controlled Pain: adequately controlled Airway Patency, RR, SpO2: stable & adequate BP & HR: stable & adequate Hydration State: stable & adequate Neuraxial Anesthesia: was administered and sensory block is resolving Anesthetic Complications: no major complications apparent and Pt Satisfied with anesthetic care
[2023-05-07] MEDS ORDERED: HYDROmorphone INJ 0.5 MG/0.5 ML SYR IV PRN (10:53)
[2023-05-07] MEDS ORDERED: ALUMINUM/MAGNESIUM SUSP 30 ML UDC PO PRN (10:53)
[2023-05-07] MEDS ORDERED: bisacodyL 10 MG SUPP PR PRN (10:53)
[2023-05-07] MEDS ORDERED: METOCLOPRAMIDE HCL INJ 5 MG/ML 2 ML VIAL IV PRN (10:53)
[2023-05-07] MEDS ORDERED: MAGNESIUM HYDROXIDE SUSP 30 ML UDC PO PRN (10:53)
[2023-05-07] MEDS ORDERED: NALOXONE HCL 0.4 MG/1 ML VIAL/CARP IV PRN (10:53)
[2023-05-07] MEDS ORDERED: PHARMACY GLYCEMIC MGMT CONSULT PRN (10:53)
[2023-05-07] MEDS: SODIUM CHLORIDE 0.9% 1,000 ML IV SCH (11:42)
[2023-05-07] MEDS: INSULIN ASPART PER UNIT CHARGE SC SCH (12:49)
[2023-05-07] MEDS: KETOROLAC TROMETHAMINE 15 MG/ML VIAL IV SCH (13:20)
--- NOTE | 2023-05-07 13:54 | Pharmacy Report ---
Pharmacy Glycemic Short Note 2 - Date of Service May 07, 2023 - Glycemic Short BSG Results (Last 24 hours): 05/07/23 05/07/23 05/07/23 06:16 09:57 11:34 POC Glucose 92 135 H 124 H OUTPATIENT ANTIDIABETIC REGIMEN: * Ozempic 1mg Q7D * metformin 500mg QAM * HbA1c pending (05/08/23) ASSESSMENT: * Palmira is a 77 YOF admitted status post right total hip replacement and a history of type 2 diabetes mellitus. Pharmacy has been consulted for glycemic management while inpatient. * Preoperative BSG 92mg/dL, received Ancef and dexamethasone 10mg IV x1 preop, lunchtime BSG within goal range, will hold basal at this time. * Novolog initiated at a weight based stress of 2 (based on adjusted body weight) PLAN FOR INPATIENT GLYCEMIC CONTROL: * Hold outpatient oral diabetes medications * Basal insulin * hold * Bolus insulin * NovoLog per scale ACHS or Q6hrs while NPO * Goal Range: Low 110 mg/dL - High 140 mg/dL * Correction Factor: 30 mg/dL/unit * Nutritional / Prandial insulin per carb ratio of 1 unit per 9 grams CHO consumed
[2023-05-07] MEDS: traMADol HCL 50 MG TABLET PO PRN (14:17)
[2023-05-07] MEDS: ceFAZolin 2000MG 2,000 MG/15 ML SYR IV SCH (15:14)
[2023-05-07] MEDS: TRANEXAMIC ACID / 0.7% NACL 1,000 MG/100 ML BAG IV SCH (15:15)
[2023-05-07] MEDS: ASCORBIC ACID 500 MG TAB PO SCH (17:26)
[2023-05-07] MEDS: SENNA 8.6 MG TAB PO SCH (19:56)
[2023-05-07] MEDS: ASPIRIN 81 MG ECTAB PO SCH (19:57)
[2023-05-07] MEDS: DOCUSATE SODIUM 100 MG CAP PO SCH (19:57)
[2023-05-08 06:44] LABS: Basophils # (auto) 0.02 K/uL (0.00-0.20); Basophils % (auto) 0.1 %; Hematocrit (blood only) 29.1 % (37.0-47.0); Hemoglobin 9.8 g/dl (12.0-16.0); Immature Granulocytes # (auto) 0.05 K/uL (0.01-0.20); Immature Granulocytes % (auto) 0.3 %; Lymphocytes # (auto) 2.19 K/uL (1.20-3.40); Lymphocytes % (auto) 14.7 %; Mean Corpuscular Hemoglobin 30.7 pg (25.0-34.0); Mean Corpuscular Hgb Conc 33.7 g/dL (32.0-36.0); Mean Corpuscular Volume 91.2 fL (80.0-100.0); Mean Platelet Volume 9.5 fL (9.4-12.4); Monocytes # (auto) 1.22 K/uL (0.11-0.59); Monocytes % (auto) 8.2 %; Neutrophils # (auto) 11.45 K/uL (1.40-6.50); Neutrophils % (auto) 76.7 %; Platelet Count 314 K/uL (130-400); RDW Coefficient of Variation 13.9 % (11.5-14.5); RDW Standard Deviation 46.9 fL (36.4-46.3); Red Blood Count 3.19 M/uL (4.20-5.40); White Blood Count 14.93 K/ul (4.8-10.8)
[2023-05-08 06:54] LABS: BUN Creatinine Ratio 22.1 (10-20); Calcium 8.5 mg/dl (8.6-10.3); Creatinine Clr Calc Pharmacy 59.7 ml/min; Est GFR (Non-African American) 51.8 ml/min
[2023-05-08 07:09] LABS: Estimated Average Glucose 126 mg/dl
[2023-05-08] MEDS: ATORVASTATIN 40 MG TAB PO SCH (07:59)
[2023-05-08] MEDS: SERTRALINE HCL 50 MG TABLET PO SCH (08:00)
[2023-05-08] MEDS: MULTIVITAMIN TAB PO SCH (08:00)
[2023-05-08] MEDS: OMEGA-3 (PURIFIED FISH OIL) 1 GM CAP PO SCH (08:01)
[2023-05-08] MEDS: buPROPion XL 300 MG TABCR PO SCH (08:01)
[2023-05-08] MEDS: dexAMETHasone 10 MG in SYRINGE 0 ML IV SCH (08:02)
[2023-05-08] MEDS: PANTOprazole 40 MG TAB PO SCH (08:02)
[2023-05-08] MEDS ORDERED: NON-FORMULARY MEDICATION (Multivitamin Tablet) PO SCH (09:00)
[2023-05-08] MEDS: LANTUS PER UNIT CHARGE SC ONE (09:05)
--- NOTE | 2023-05-08 13:54 | Orthopedic Progress Note ---
Date of Service May 08, 2023 Assessment & Plan (1) Status post left hip replacement: Overall, she is doing quite well today with good pain control to the left hip. She has participated well with physical therapy working on ambulation and range of motion exercises. She is currently on aspirin for DVT prophylaxis. She notes that she will require more help at if she would go home and then she has available. Due to this, she would like to go to a prison facility upon discharge. I did discuss this with case management in which they did state that [facility] probably could take her today but she would rather go to a prison facility instead. Admit order placed. Case management following. I did put a consult for the wound care nurse to come and look At the Prevena wound VAC and see if we can get a replacement machine. If not, the Prevena itself can be replaced. She is orthopedically stable for discharge once a bed is available. She will follow-up with Dr. Freeman in 2 weeks for postoperative management. Subjective . Palmira was seen and evaluated this morning resting comfortably in no apparent distress. She notes that her pain is well-controlled today to the left hip. She does note that her Prevena wound VAC stopped working early this morning. She notes that she has been out of bed with no significant issues. She has worked with physical therapy this morning working on ambulation and range of motion with no significant issues. She does feel that she would require more help and she has back at home. She is interested in going to a prison facility upon discharge for some rehabilitation. She denies any other concerns today. Review of Systems All systems reviewed & are unremarkable except as noted in HPI & below. Physical Exam . On physical examination of the left hip, dressings are clean, dry, intact. The Prevena wound VAC is currently not maintaining negative pressure due to machine not properly turning on. Her leg is out in full extension. She has active plantarflexion dorsiflexion of the left ankle. +2 DP and PT pulses. Less than 2-second capillary refill. Normal sensation. Neurovascular intact. Results & Data Results & Data Laboratory Results . Diagnostic Findings Postoperative x-rays of the left hip show prosthesis to be in anatomical alignment with no signs of fracture complication or loosening. PG Care Time/CCT Total # of Minutes Spent Total Time Spent with Patient: Total time spent is greater than 50% in coordination of care (as documented) at patient's floor/unit and/or counseling patient: Coding Level of Care Code 73684 Post Operative Follow-Up Diagnoses Status post left hip replacement Z96.642
--- NOTE | 2023-05-08 14:26 | Pharmacy Report ---
Pharmacy Glycemic Short Note 2 - Date of Service May 08, 2023 - Glycemic Short BSG Results (Last 24 hours): 05/07/23 05/07/23 05/08/23 16:30 20:38 06:13 Glucose 107 H POC Glucose 146 H 144 H 05/08/23 05/08/23 07:43 11:16 Glucose POC Glucose 108 H 168 H OUTPATIENT ANTIDIABETIC REGIMEN: * Ozempic 1mg Q7D * metformin 500mg QAM * HbA1c pending (05/08/23) ASSESSMENT: 05/07 * Palmira received 10 units of bolus insulin yesterday * Fasting BSG acceptable this AM, BSGs within goal range yesterday despite receiving steroids yesterday, will give a small dose of Lantus to help cover additional dose of steroids today * No change to Novolog * No additional glycemic stressors noted, currently awaiting placement 05/06 * Palmira is a 77 YOF admitted status post right total hip replacement and a history of type 2 diabetes mellitus. Pharmacy has been consulted for glycemic management while inpatient. * Preoperative BSG 92mg/dL, received Ancef and dexamethasone 10mg IV x1 preop, lunchtime BSG within goal range, will hold basal at this time. * Novolog initiated at a weight based stress of 2 (based on adjusted body weight) PLAN FOR INPATIENT GLYCEMIC CONTROL: * Hold outpatient oral diabetes medications * Basal insulin * hold * Bolus insulin * NovoLog per scale ACHS or Q6hrs while NPO * Goal Range: Low 110 mg/dL - High 140 mg/dL * Correction Factor: 30 mg/dL/unit * Nutritional / Prandial insulin per carb ratio of 1 unit per 9 grams CHO consumed
--- NOTE | 2023-05-09 08:05 | Surgery Progress Note ---
Date of Service May 09, 2023 Assessment & Plan (1) Status post left hip replacement: Plan: 77-year-old female postop day 2 from a left hip replacement doing pretty well. She decided she wants to go to [facility]. Just awaiting placement. Pain is controlled. Hips located. Plan: 1. DVT prophylaxis including thigh-high teds, SCDs, aspirin twice a day. 2. PT/OT. Weight-bear as tolerated. Left total hip protocol. 3. Pain control doing well with current pain regimen. 4. Wound care. She has a Prevena VAC dressing in place. This will stay on for a week. 5. Disposition just waiting for placement. Admission and Anticipated Discharge Date Admission Date: May 08, 2023 Subjective 77-year-old female postop day 2 from a left total hip replacement. She is doing well. Pain is controlled. Denies any chest pain or shortness of breath. She is just really waiting for placement. Physical Exam Physical Exam: Physical exam shows a pleasant elderly female. As she is sitting up in her bedside chair and looks comfortable. Examination of left hip and leg reveals the Prevena VAC to be in place. At working at this morning. Dressings clean dry and intact. Thigh is soft and supple. Hips located. She is neurologically intact Results & Data Vital Signs (Past 12 Hours) Vital Signs Temp Pulse Resp BP BP Pulse Ox O2 Del Method 05/09/23 07:11 36.5 C 74 17 131/75 96 Room Air 05/08/23 20:46 36.4 C L 81 18 136/76 94 Room Air 05/08/23 20:20 Room Air PG Care Time/CCT Total # of Minutes Spent Total Time Spent with Patient: Total time spent is greater than 50% in coordination of care (as documented) at patient's floor/unit and/or counseling patient: Coding Level of Care Code None Diagnoses Status post left hip replacement Z96.642
--- NOTE | 2023-05-10 07:48 | Surgery Progress Note ---
Date of Service May 10, 2023 Assessment & Plan (1) Status post left hip replacement: Plan: 77-year-old female postop day 3 from a left total hip replacement doing well. Pain is controlled. Hips located. She is neurologically intact. Just just waiting for rehab. Plan: 1. DVT prophylaxis including thigh-high teds, SCDs, aspirin twice a day. 2. PT/OT. Weight-bear as tolerated. A left total hip protocol. 3. Pain control doing well with current pain regimen. 4. Disposition plan to discharge to rehab. They have a bed available or I believe that [facility] today. Admission and Anticipated Discharge Date Admission Date: May 08, 2023 Subjective 77-year-old female postop day 3 from a total hip replacement. She is doing p retty well. Pains controlled. Really not much pain at all. No chest pain or shortness of breath. Just waiting for acceptance to rehab. Physical Exam Physical Exam: Physical examination was a pleasant elderly female. As she sitting up in bedside chair looks comfortable. Examination left hip reveals the large soft tissue envelope. Her Prevena VAC dressing is in place. Thigh is soft and supple. Hips located. Leg lengths are equal. She is neurologically intact Results & Data Vital Signs (Past 12 Hours) Vital Signs Temp Pulse Resp BP BP Pulse Ox O2 Del Method 05/10/23 07:29 36.6 C 76 19 119/74 93 Room Air 05/09/23 20:20 Room Air 05/09/23 20:18 36.4 C L 69 16 147/79 H 96 Room Air PG Care Time/CCT Total # of Minutes Spent Total Time Spent with Patient: Total time spent is greater than 50% in coordination of care (as documented) at patient's floor/unit and/or counseling patient: Coding Level of Care Code None Diagnoses Status post left hip replacement Z96.642
[2023-05-10] MEDS: metFORMIN HCL ER 500 MG TABCR PO SCH (08:42)
--- NOTE | 2023-05-12 12:32 | Discharge Summary ---
Date of Service May 12, 2023 Admission HPI (Per Admitting) . Patient is a 77-year-old female well-known to me from previous bilateral knee replacement done back in 2017. These were done about 5 months apart. She had a long history of multiple orthopedic joint problems and replacement. She she had a left reverse shoulder done by Dr. Brumfield 5 years ago. She had a right hip replaced done at [place] by Dr. Guteirrez in 2012. Over the past several years she developed increased pain discomfort in her left hip. She has a sense of instability in her knee as a result of the pain in her hip rating down to her knee. She limps more as the day goes on. She been gaining weight as a result of limited activities. She tried to lose weight but unsuccessful. She now like to have her left hip fixed. Admission Exam (Per Admitting) . Physical examination is a pleasant elderly female. Looks in reasonably good health. Examination left hip reveal patient walks with a cane. She clearly limps on the left side. Legs and ankles appear that she is a little bit shorter on the side compared to the right. She has pain and stiffness with hip motion. Limited internal rotation in neutral at best. Negative straight leg raise. She is neurologically intact. Principal Diagnosis Same as "Discharge Diagnosis" noted below under Discharge Instructions. Discharge Exam . On physical examination of the left hip, dressings are clean, dry, intact. The Prevena wound VAC is currently not maintaining negative pressure due to machine not properly turning on. Her leg is out in full extension. She has active plantarflexion dorsiflexion of the left ankle. +2 DP and PT pulses. Less than 2-second capillary refill. Normal sensation. Neurovascular intact. Discharge Data Procedures Performed Operation Date: 05/07/23 07:00 Actual Procedures p Left Total Hip Arthroplasty, Uncemented(Left) - Demetri Freeman MD Hospital Course (1) Status post left hip replacement: On May 07, 2023 Palm[place] arrived at [facility] and underwent a left total hip arthroplasty performed by Dr. Freeman with no complications. She had a spinal anesthetic. Postoperatively, she was started on aspirin for DVT prophylaxis and transferred to the general orthopedic floor in stable condition. Her hospital course was uneventful. On postoperative day #1, her vital signs were stable and her pain was well-controlled. She participated well with physical therapy working on ambulation and range of motion exercises. She did note that she would like to go to a rehabilitation hospital upon discharge due to her not having the care that she would require postoperatively at home right away. She is orthopedically stable for discharge at that point but [facility] No other significant events occurred this night. No significant events occurred on postoperative day #2. [facility] On postoperative day #3, her vital signs are stable and her pain is well-controlled. She participated well with physical therapy working on ambulation and range of motion exercises. [facility]. She will follow-up with Dr. Freeman in 2 weeks for postoperative management. PG Care Time/CCT Total # of Minutes Spent Total Time Spent with Patient: Total time spent is greater than 50% in coordination of care (as documented) at patient's floor/unit and/or counseling patient: Discharge Plan Discharge Items Patient Disposition: Transfer Inpatient Rehab Fac Reason For Visit: Left Hip Degenerative Joint Disease Discharge Diagnosis: Left Hip Replacement Activity: Per Instructions section Activity Comment: Follow/Obey hip precautons at all times. Weightbearing: Full weightbearing Weightbearing Comment: Weightbear as tolerated obeying hip precautions at all times. Non-emergency contact: Surgeon Call non-emergency contact if: you have any medication questions Follow-up/Referrals: Kayla Segovia MD [Primary Care Provider] - Diet: Carb Consistent or DM2 Addtl Attending Provider Instructions: ACTIVITY RECOMMENDATIONS: Physical Therapy: * Aggressive physical therapy is not usually needed. You will learn to take care of yourself safely and walk. * Follow the "Hip Precautions Instructions." * In some cases, the medical social consultant at the hospital will arrange to have a therapist come to your house for the first couple of weeks to help you learn these skills. * You need to practice on your own or with the help of a family member as needed. * When you learn these skills, most of the therapy can be done on your own. Home Exercise: * You were shown a series of exercises in the hospital. Do these exercises three to four times each day including the exercises you were shown in physical therapy. Walking: * Get up and walk several times each day. For the first four weeks, try not to stand or walk for more than one hour at a time. If you do stand or walk for more than one hour, you will not hurt anything, but your leg will likely swell. * As you feel comfortable, you may change from the walker or crutches to a cane and then to independent walking. MEDICATIONS: New Medicine: * You will likely be taking one or more of these medicines: 1. Tramadol - Take, as directed, when you need it, every six hours to control your pain. 2. Aspirin - Thins your blood to lessen the chance of forming a blood clot. * The most common side effects of pain medicine and iron are nausea and constipation. If nausea or constipation is too much of a problem or if you have any questions about your new medicines or doses, call [facility] at . We will try to help you manage these issues. "VERY IMPORTANT TO READ AND REVIEW" Pain: * The immediate post-operative period after hip replacement surgery is often quite painful. * You are given a prescription for pain medicine. You should take it, as directed, when you need it, especially before physical therapy and before going to bed. Pain that interferes with sleep is very common and can last several months. * You will likely need pain medicine for the first two to four weeks. It will not stop all of the pain. The pain will lessen and as you feel better, you may change to milder pain medicine such as Tylenol. * The most common side effects of pain medicine are nausea and constipation, so don't take more than you need. SPECIAL CARE INSTRUCTIONS: TEDs/Elastic Stockings: * The white elastic stockings help limit swelling and prevent blood clots from forming in your legs. The more you wear them, the more they work. * Wear them for six weeks. Incision Site Care: * Remove dressing postoperative day 7. May shower, but need to keep battery from Proveena Vac out of water. * After showering, cover ciara with dry gauze and change daily or more frequently if the dressing is getting saturated with drainage. * May completely stop using bandage if wound is dry and no drainage * [place] are removed between 2 and 3 weeks post-op. If your follow-up appointment is made before 2 weeks, please have your appointment re- scheduled. It is too early to remove the ciara. Prevention of Infection: * Take antibiotics one hour before any dental cleaning, dental work, urological procedure, gastrointestinal procedure or any invasive surgery in order to prevent your new joint from getting infected. * You may get the antibiotics from the doctor performing the procedure or you may call our office at before and we will call in a prescription to the pharmacy of your choice. Things to Watch For: * Drainage from the incision site that occurs more than one week after your surgery. * Severely increased leg pain or swelling. * Increased redness at the incision site. * Fever above 102 degrees Fahrenheit. * Unusual chest pain or shortness of breath. * Unusual pain or burning with urination. Call [facility] at with any of the above problems or if you have any questions about your medicines or recovery. FOLLOW UP VISIT: Make an appointment to see your doctor for approximately two weeks after surgery for a progress check and staple removal by calling the office at . Pending Studies at Discharge: No Stand-Alone Forms: My [facility] Skilled Items Patient informed of condition?: Yes DNR: No Discharge Level of Care: Acute rehab Communicable Disease: No Discharge Prognosis: Improving Lines: None Urinary Catheter: No Medications and DC Order Prescriptions: New acetaminophen [Tylenol Extra Strength] 500 mg Tablet 1,000 mg PO Q8 30 Days Qty: 180 0RF Rx Instructions: Take 3 times per day to lessen pain. aspirin 81 mg Tablet,Delayed Release (Dr/Ec) 81 mg PO BID 45 Days Qty: 90 0RF Rx Instructions: Take to prevent blood clots. tramadol 50 mg Tablet 50 - 100 mg PO Q8H PRN (Reason: pain) Qty: 30 0RF Rx Instructions: Take as needed for Pain. Not more than 6 tablets per day. Continued (DME) miscellaneous medical supply Package See Rx Instructions .ROUTE .MEDSUPPLY Qty: 1 0RF Rx Instructions: mask of choice. [facility] (DME) CPAP Machine Misc See Dose Instructions .ROUTE .MEDSUPPLY Qty: 1 0RF Dose Instruction: As directed Rx Instructions: New machine. CPAP at 17 cm water- [facility] Ozempic 0.25 mg or 0.5 mg(2 mg/1.5 mL) pen injector 1 mg subcut Q7D Patient Comments: atorvastatin 40 mg tablet 40 mg PO QAM omeprazole 20 mg Tablet,Delayed Release (Dr/Ec) 20 mg PO QAM multivitamin Tablet 1 tab PO QAM aspirin 81 mg Tablet,Chewable 81 mg PO QAM bupropion HCl [Wellbutrin XL] 300 mg Tablet Extended Release 24 Hr 300 mg PO QAM acetaminophen [Tylenol] 325 mg Capsule 1 tab PO QID PRN (Reason: Pain) omega 3-eih-zfu-fish oil [Fish Oil] 1,000 mg (120 mg-180 mg) Capsule 1 tab PO QAM sertraline 25 mg tablet 25 mg PO QAM metformin 500 mg tablet extended release 24 hr 500 mg PO QAM Discharge Orders: Discharge Order (Routine); Ordered 05/10/23 Ordered By: Demetri Charlton/Other Patient Handouts: Hip Arthroscopy: After Surgery, Managing Type 2 Diabetes Admission Data Admit Date/Time: 05/08/23 11:51 Attending Provider: Demetri Freeman Admit Provider: Demetri Freeman Primary Care Provider: Kayla Segovia Other Providers: Anabell Iverson [place]; [facility] Other Interventions: Discharge Summary Assessment (RN) Last Done: 05/09/23 09:20
== END 2023-05-10 12:00 | DRG 470 ==
LOC: 3E 05:16 → ASU 05:16